=== PATIENT | male | born 1950 | race Caucasian/White ===

== ENCOUNTER 2025-01-06 02:58 | Inpatient (IN) | payer MEDICARE, OTHER, SELFPAY ==
[2025-01-05 21:58] VITALS: BP 115/85
[2025-01-05 21:59] VITALS: BP 115/85
[2025-01-05 22:04] VITALS: BMI 19.4
[2025-01-05 22:46] LABS: ALT (SGPT) 12 U/L (0-50); AST (SGOT) 23 U/L (17-59); Albumin 3.7 g/dl (3.5-5.0); Alkaline Phosphatase 80 U/L (38-126); Blood Urea Nitrogen 33 mg/dl (9-20); Calcium 8.4 mg/dl (8.4-10.2); Carbon Dioxide 23 mmol/L (22-30); Chloride 109 mmol/L (98-107); Estimated Creatinine Clearance 40 ml/min; Glucose 96 mg/dl (70-99); Hematocrit 48.8 % (39.0-52.0); Hemoglobin 15.5 g/dL (13.0-18.0); Mean Corp Hgb Conc. 31.8 g/dL (33.0-37.0); Mean Corpuscular Volume 106.6 fL (80.0-94.0); Nucleated Red Blood Cells % 0 % (-); Potassium 4.9 mmol/L (3.5-5.1); Red Cell Dist. Width 17.2 % (11.5-14.5); Sodium 136 mmol/L (135-145); Total Protein 6.6 g/dl (6.3-8.2); eGFR 57.29
[2025-01-05 23:00] LABS: Troponin I 0.047 ng/ml
[2025-01-05 23:10] VITALS: BP 114/83
[2025-01-06] VITALS (12 sets, daily range): BP systolic 100–118; BP diastolic 68–86; PULSE 110; O2SAT 93; BMI 19.6
--- NOTE | 2025-01-06 00:19 | ED.GENMED ---
History of Present Illness
<Anna Pelayo MD, Resident - Last Filed: 01/06/25 01:05>
General
Chief Complaint: Breathing Problem
Time Seen by Provider: 01/06/25 00:17
History of Present Illness
History of Present Illness:
74yo M with a hx of HFrEF, asthma, smoking hx, lung ca (s/p L upper lobectomy 2000) who p/w worsening orthopnea & HALI.
Pt states that for the last few months he started having mild worsening dyspnea on exertion. Over the last 4-5 days SOB progressed to severe orthopnea, felt like drowning in bed and has not slept more than an hour or so each night. Has been
restricting his water intake to try to help. Has productive cough. No fever. Has some dyspnea at rest with speaking. Endorses worsening bilateral HALI to the knees, leading to him cutting his pants legs to allow space. Takes jardiance, entresto, &
metoprolol at home, although admits to occasionally missing/skipping doses. Uses albuterol inhaler PRN for asthma; he used it today. Denies hx fo COPD. Endorses smoking hx on and off throughout life. His last echo was ~12 yrs ago, which demonstrated
EF of 15-20%. States dry weight 125lb.
Past History
<Anna Pelayo MD, Resident - Last Filed: 01/06/25 01:05>
Past History
ED Past Medical History: Asthma, Cancer and CHF
ED Past Surgical History: Other (L upper lobectomy)
Patient has exhibited threatening behavior?: No
Social History
Tobacco: Former smoker
Review of Systems
<Anna Pelayo MD, Resident - Last Filed: 01/06/25 01:05>
Review of Systems
All Other Systems: ROS reviewed and negative except as documented in HPI and ROS
Phy Exam
<Anna Pelayo MD, Resident - Last Filed: 01/06/25 01:05>
Cardiovascular Exam
Cardiovascular Exam: regular rate/rhythm and other (2+ pitting edema bilaterally to knees)
Heart Sounds: normal
Pulmonary Exam
Pulmonary Exam: lungs clear and other (SOB with speaking, no accessory muscle use)
<Rubin Rene MD - Last Filed: 01/06/25 02:08>
Physical Exam
Physical Exam:
see above
Scores
<Rubin Rene MD - Last Filed: 01/06/25 02:08>
Heart Failure Risk
Heart Failure Risk Score: Yes
History of Stroke or TIA: No
History of intubation for respiratory distress: No
Heart rate on ED arrival >/= 110: Yes
SaO2 <90% on arrival on room air: No
HR >/=110 during 3min walk test (or too ill to perform test): Yes
ECG has acute ischemic changes: No
Urea >/=12mmol/L (BUN 33.6mg/dL): Yes
Serum CO2>/=35mmol/L: No
Troponin I or T elevated to MN Level (0.4mg/dL): No
NT-proBNP >/=5,000ng/L (5,000pg/ml): Yes
HF Risk Score: 4
Admission Status: HIGH RISK 26.1% Consider SNF treatment or admission to hospital
Course
<Anna Pelayo MD, Resident - Last Filed: 01/06/25 01:05>
Orders/Labs/Results
Orders:
Orders
01/05/25 22:16
Electrocardiogram (*1) Urgent
Reason for Study: Chest Pain
EKG- Treatment ONCE
01/05/25 22:17
Complete Blood Count/With Diff Urgent
Comprehensive Metabolic Panel Urgent
NT-proBNP Urgent
Troponin I Urgent
01/05/25 22:18
Chest [CR Chest - 2 Views ] Urgent
Comment:
Reason For Exam: sob
01/06/25 01:04
Furosemide [Lasix] 40 mg IV NOW STA
Abnormal Lab Results
01/05/25
22:17
RBC 4.58 L 10^6/uL
(4.70-6.10)
MCV 106.6 H fL
(80.0-94.0)
MCH 33.8 H pg
(27.0-31.0)
MCHC 31.8 L g/dL
(33.0-37.0)
RDW 17.2 H %
(11.5-14.5)
Absolute Monos (auto) 0.7 H 10^3/uL
(0.1-0.6)
Monocytes % 10.2 H %
(1.7-9.3)
Chloride 109 H mmol/L
(98-107)
BUN 33 H mg/dl
(9-20)
Total Bilirubin 2.0 H mg/dl
(0.2-1.3)
Troponin I 0.047 H* ng/ml
01/05/25 22:17
01/05/25 22:17
Vital Signs
Initial and Last Documented VS:
Initial Vital Signs
Pulse Resp BP
113 22 115/85
01/05/25 21:58 01/05/25 21:58 01/05/25 21:58
Last Documented Vital Signs
Temp Pulse Resp BP Pulse Ox
98.5 F 101 16 102/71 98
01/05/25 21:59 01/06/25 01:15 01/06/25 01:15 01/06/25 01:11 01/06/25 01:15
<Rubin Rene MD - Last Filed: 01/06/25 02:08>
Orders/Labs/Results
Orders:
Orders
01/05/25 22:16
Electrocardiogram (*1) Urgent
Reason for Study: Chest Pain
EKG- Treatment ONCE
01/05/25 22:17
Complete Blood Count/With Diff Urgent
Comprehensive Metabolic Panel Urgent
NT-proBNP Urgent
Troponin I Urgent
01/05/25 22:18
Chest [CR Chest - 2 Views ] Urgent
Comment:
Reason For Exam: sob
01/06/25 01:04
Furosemide [Lasix] 40 mg IV NOW STA
Abnormal Lab Results
01/05/25
22:17
RBC 4.58 L 10^6/uL
(4.70-6.10)
MCV 106.6 H fL
(80.0-94.0)
MCH 33.8 H pg
(27.0-31.0)
MCHC 31.8 L g/dL
(33.0-37.0)
RDW 17.2 H %
(11.5-14.5)
Absolute Monos (auto) 0.7 H 10^3/uL
(0.1-0.6)
Monocytes % 10.2 H %
(1.7-9.3)
Chloride 109 H mmol/L
(98-107)
BUN 33 H mg/dl
(9-20)
Total Bilirubin 2.0 H mg/dl
(0.2-1.3)
Troponin I 0.047 H* ng/ml
01/05/25 22:17
01/05/25 22:17
Vital Signs
Initial and Last Documented VS:
Initial Vital Signs
Pulse Resp BP
113 22 115/85
01/05/25 21:58 01/05/25 21:58 01/05/25 21:58
Last Documented Vital Signs
Temp Pulse Resp BP Pulse Ox
98.5 F 101 16 102/71 98
01/05/25 21:59 01/06/25 01:15 01/06/25 01:15 01/06/25 01:11 01/06/25 01:15
<Anna Pelayo MD, Resident - Last Filed: 01/06/25 01:05>
MDM/Problems Addressed
Differential Diagnosis Includes:
HFrEF exacerbation
MDM/Problems Addressed:
Plan:
- Bedside cardiac US
- Furosemide diuresis 40mg IV lasix
- Order cardiac echo
- Admit to floors
- Monitor weight
<Anna Pelayo MD, Resident - Last Filed: 01/06/25 01:05>
*Pulse Oximetry
SaO2: 96
Oxygen Mode of Delivery: Room air
<Rubin Rene MD - Last Filed: 01/06/25 02:08>
*Pulse Oximetry
Patient hypoxic: no
*Critical Care Note
Total Time (30-74mins, 75-104mins- exclusive of procedures): Not Applicable
<Anna Pelayo MD, Resident - Last Filed: 01/06/25 01:05>
Update Note
Update Note:
Bedside cardiopulm US demonstrated B lines throughout lung [place], R sided pleural effusion, and diminished LV contractility
ED Attending Note
<Anna Pelayo MD, Resident - Last Filed: 01/06/25 01:05>
-
Portions of this chart may have been created with voice recognition software.� Occasional wrong word or��sound alike� substitutions may have occurred due to the inherent limitations of voice recognition software.
<Rubin Rene MD - Last Filed: 01/06/25 02:08>
ED Attending Note
ED Attending Note:
I saw and evaluated patient independently. Notes gradually worsening dyspnea with exertion as well as orthopnea. Notes increasing lower extremity edema over the past 1 to 2 weeks. He is not on any diuretic but does have a significantly reduced
ejection fraction. Bedside echo showing very poor EF. There are B-lines bilaterally indicating pulmonary edema. He is in no respiratory distress, saturating well on room air. Will diurese, admit to hospitalist for further workup, echo, diuresis.
Discharge Plan
Departure
Prescriptions:
No Action
latanoprost 0.005 % Drops
1 drp OPHTHALMIC (EYE) DAILY
metoprolol succinate 25 mg Tablet Extended Release 24 Hr
25 mg PO 1XD
albuterol sulfate 90 mcg/actuation Hfa Aerosol Inhaler
2 puff INHALATION 6XD
loratadine [Claritin] 10 mg Tablet
10 mg PO DAILY PRN (Reason: Reduction Of Transepidermal Water Loss)
Jardiance 10 mg Tablet
10 mg PO DAILY
sacubitril-valsartan [Entresto] 24-26 mg Tablet
1 tab PO BID
Referrals:
Hitesh Rowe MD [Family Provider]
Interventions
Interventions:
*Risk Screen - Suicide Last Done: 01/05/25 22:05
*General Assessment Last Done: 01/05/25 22:05
*Neglect/Abuse Screening Last Done: 01/05/25 22:05
*ED- Fall Risk Assessment Last Done: 01/05/25 22:05
*ED COVID-19 Vaccine History Last Done: 01/05/25 22:05
*ED Influenza Vaccine History Last Done: 01/05/25 22:05
ED- Cardiac Assessment Last Done: 01/05/25 22:13
ED- Pulmonary Assessment Last Done: 01/05/25 22:13
Discharge Date and Time
Print Language: TAJIK
[2025-01-06] MEDS: LASIX 40 MG IV ×3 (01:11→16:20)
--- NOTE | 2025-01-06 05:09 | HPS.HSE ---
Family Physician
-
Family Physician: Hitesh Rowe MD
Chief Complaint
-
Weakness, SOB
History of Present Illness
Patient is a 74y M with PMH significant for lung cancer and cardiomyopathy who presents to ED complaining of generalized weakness and SOB. Patient states that he has had cough and SOB that has been worsening over the past few weeks. Symptoms
seem worse at night when he is trying to sleep. Patient is followed at [facility] by Pulmonary and Cardiology. He has not previously been to this institution.
Patient has h/o lung cancer s/p IRVING resection in 2000. He states that he recently had abnormal CT and PET-CT showing R sided mass / malignancy.
He was seen by Cardiology for pre-op assessment and reportedly advised that he could not tolerate anesthesia.
Patient is awake and alert - but has tangential speech with a great deal of rambling. Coherent / linear history is somewhat difficult to obtain.
Medical History
Past Medical History
Past Medical History: Reports Other
Additional Past Medical History:
Lung Cancer s/p Left Upper Lobectomy
Chronic HFrEF
BPH
Past Surgical History: Reports Other
Additional Past Surgical History:
Left Upper Lobectomy
TURBT
Social History
Tobacco: Smoker (Current every day smoker - self-rolled / unfiltered cigarettes.)
Alcohol: Daily (3 oz daily of vodka / scotch)
Drug: None
Family History
Family History: Not pertinent
Allergies / Home Medications
Allergies reflects when Allergies were last updated in [email or web address].
Home Medications with original date entered in [email or web address]
Allergy/Medication List:
Allergies
Allergy/AdvReac Type Severity Reaction Status Date / Time
No Known Allergies Allergy Unverified 01/05/25 23:50
Home Medications
albuterol sulfate 90 mcg/actuation aerosol inhaler 2 puff inhalation 6XD 01/06/25
empagliflozin 10 mg tablet (Jardiance) 10 mg PO DAILY 01/06/25
latanoprost 0.005 % eye drops 1 drp ophthalmic (eye) DAILY 01/06/25
loratadine 10 mg tablet (Claritin) 10 mg PO DAILY PRN Reduction Of Transepidermal Water Loss 01/06/25
metoprolol succinate 25 mg tablet,extended release 24 hr 25 mg PO 1XD 01/06/25
sacubitril 24 mg-valsartan 26 mg tablet (Entresto) 1 tab PO BID 01/06/25
Review of Systems
-
History Source: Patient
A 12 point ROS was completed and negative except as noted: Yes
Constitutional: Reports Fatigue; Denies Fever or Chills
EENT: Denies Sore Throat
Respiratory: Reports Cough and Trouble Breathing
Cardiac: Denies Chest Pain or Palpitations
Abdomen/GI: Denies Abdominal Pain, Nausea or Vomiting
: Denies Dysuria or Flank Pain
Musculoskeletal: Reports Edema; Denies Joint Pain
Neurological: Denies Dizzy or Headache
Psych: Denies Depression or Anxiety
Physical Exam
Vital Signs
Vital Signs
Temp Pulse Resp BP Pulse Ox
98 F 111 19 111/82 98
01/06/25 04:30 01/06/25 04:30 01/06/25 04:30 01/06/25 04:30 01/06/25 04:30
Physical Exam
General: Other (Cachectic 74y M in no acute distress.)
HEENT: Other (Dry MM. Neck supple. Pos HJR.)
Respiratory: Other (Coarse breath sounds R mid lung field. Scattered expiratory wheezes throughout.)
Cardiac: S1/S2 and Tachycardia; No Murmur
GI: Soft, Non Tender, Non Distended and Normal Bowel Sounds
Musculoskeletal: No Clubbing, No Cyanosis and Other (3+ pedal edema bilaterally - extends to knees.)
Neuro: Awake, Alert and Other (Somewhat rambling / confusing speech. Able to redirect with effort.)
Laboratory Results
-
Laboratory Results
Total Bilirubin 2.0 mg/dl (0.2-1.3) H 01/05/25 22:17
AST 23 U/L (17-59) 01/05/25 22:17
ALT 12 U/L (0-50) 01/05/25 22:17
Alkaline Phosphatase 80 U/L (38-126) 01/05/25 22:17
Troponin I 0.047 ng/ml H* 01/05/25 22:17
Impression/Plan
-
A/P: Patient is a 74y M with PMH significant for lung cancer and CHF who presents to ED complaining of SOB and fatigue.
Subjective Dyspnea, Cough
- Admit for further evaluation and treatment.
- Certainly patient has multiple potential etiologies for dyspnea.
- He is not in acute distress nor is he hypoxemic, etc.
- No urgent intervention is necessary and will perform additional evaluations as noted below and obtain outside records prior to formulating treatment plan.
Chronic HFrEF
- Patient reports that LVEF = 20%. No prior records here or available in [facility].
- Lasix dose given in the ED.
- Update Echo.
- Obtain prior Cardiology records.
- Continue current med regimen including Jardiance and Entresto
- Follow I/Os, daily weights, etc.
- Dose additional Lasix as needed. Note that BP is borderline.
- Does have LE edema - ? primary pulmonary process / cor pulmonale / etc.
- Check US to rule out DVT as well.
Lung Cancer
- Prior h/o LISA lobectomy due to cancer. No adjuvant therapy per patient (chemo was recommended but not pursued?).
- Reports recent imaging (CT and PET) showing new R sided lesion.
- This is supported by current CXR findings.
- Unclear what - if any - current treatment plan is in place. Deemed non-operative candidate per Cardiology according to patient.
- Obtain outpatient records for review.
COPD
- Scattered wheezing on exam and lifelong smoking history - though reportedly no formal dx of COPD.
- Appears fairly comfortable and not hypoxemic.
- Nebs ATC and PRN. Observe off of systemic steroids for now - especially given edema.
- Review prior records. Pulm evaluation for additional recommendations.
- Encourage smoking cessation - though suspect he will not be motivated to quit.
- With coarse breath sounds and RUL opacity (likely malignancy), will cover with abx for now.
- Low threshold to discontinue abx if no fever, leukocytosis, etc.
DVT Prophylaxis: Lovenox
Code Status: Full
Patient notes that his health issues may be discussed with either of his sons. However, he requests that his brother (Kwaku) not be given any information.
[2025-01-06 05:44] LABS: Hematocrit 47.9 % (39.0-52.0); Hemoglobin 15.2 g/dL (13.0-18.0); Mean Corp Hgb Conc. 31.7 g/dL (33.0-37.0); Mean Corpuscular Volume 106.7 fL (80.0-94.0); Platelet Count 143 10^3/uL (130-400); Red Cell Dist. Width 17.1 % (11.5-14.5)
[2025-01-06] MEDS: ZOSYN 50 IV ×3 (05:53→19:40)
[2025-01-06 06:06] LABS: Blood Urea Nitrogen 40 mg/dl (9-20); Calcium 9.7 mg/dl (8.4-10.2); Carbon Dioxide 22 mmol/L (22-30); Chloride 107 mmol/L (98-107); Estimated Creatinine Clearance 32 ml/min; Glucose 141 mg/dl (70-99); Potassium 5.8 mmol/L (3.5-5.1); Sodium 142 mmol/L (135-145); eGFR 44.65
[2025-01-06 06:23] LABS: Troponin I 0.045 ng/ml
[2025-01-06] MEDS: DUONEB 3 ML INH ×3 (07:11→19:12)
[2025-01-06] MEDS: TOPROL XL 25 MG PO (09:03)
[2025-01-06] MEDS: FARXIGA 10 MG PO (09:03)
[2025-01-06] MEDS: ENTRESTO 24 MG/26 MG 1 TAB PO (09:04)
[2025-01-06] MEDS: XALATAN OPHTHALMIC SOLUTION 1 DROP BOTH EYES (09:17)
[2025-01-06 09:55] LABS: Troponin I 0.033 ng/ml
--- NOTE | 2025-01-06 09:57 | CON.PUL ---
Consultation
Consultation Request
Date/Time Consultation Requested: 01/06/2025-8 AM
Date/Time Consultation Performed: 01/06/2025-8:30 AM
Requesting Provider: Hospitalist
Performing Provider: Dr. Hewitt
Reason for Consultation: Shortness of breath
Medical History
-
Chief Complaint: Shortness of breath
History of Present Illness:
74-year-old actively smoking male with a history of lung cancer 2000 status post left upper lobectomy [place] whowas seen in last couple months at [facility] found to have lung masses and had a PET scan and never followed up with pulmonary now
presents with increasing shortness of breath and pulmonary consulted for abnormal chest x-ray, suspected recurrent lung cancer and possible pneumonia 01/06/2025.. The patient states that his shortness of breath is improved in the last 12 hours. He
has some shortness of breath with exertion, minimal yellow mucus production, no chest pain, pleurisy, hemoptysis, abdominal pain, and admits to significant leg swelling left greater than right lower extremity but no focal weakness. He reports
having a combination of constipation and occasional diarrhea and is unable to follow-up with pulmonary that was recommended after his last [facility] hospitalization. He reports he may have CT scan as well as a PET scan but no biopsy done at that
time. 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
Past Medical History
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 Cigarette smoker-ongoing. Chronic heart failure reduced EF. BPH. Weight loss. TURBT.)
Social History
Tobacco: Smoker ([id number]-continues sell for old unfiltered 5 to 6 cigarettes daily)
Alcohol: None (3 ounces of vodka or scotch daily)
Drug: None
Occupational Exposures: No known asbestos exposure
Environmental Exposures: No known tuberculosis exposure
Family History
Family History: Reviewed & Not Pertinent
Allergies / Home Medications
Allergies
Allergy/AdvReac Type Severity Reaction Status Date / Time
naproxen Allergy Mild Itching Verified 01/06/25 06:27
Home Medications
�Medication �Instructions �Recorded �Confirmed �Last Taken �Type
albuterol sulfate 90 mcg/actuation 2 puff inhalation 6XD 01/06/25 01/06/25 Unknown History
aerosol inhaler
empagliflozin 10 mg tablet 10 mg PO DAILY 01/06/25 01/06/25 Unknown History
(Jardiance)
latanoprost 0.005 % eye drops 1 drp ophthalmic (eye) DAILY 01/06/25 01/06/25 Unknown History
loratadine 10 mg tablet (Claritin) 10 mg PO DAILY PRN Reduction Of 01/06/25 01/06/25 Unknown History
Transepidermal Water Loss
metoprolol succinate 25 mg 25 mg PO 1XD 01/06/25 01/06/25 Unknown History
tablet,extended release 24 hr
sacubitril 24 mg-valsartan 26 mg 1 tab PO BID 01/06/25 01/06/25 Unknown History
tablet (Entresto)
Review of Systems
-
Unable to Obtain full review of systems at this time due to: Other ( per HPI)
Vitals / Labs / Diagnostic Testing
Vital Signs
Temp Pulse Resp BP Pulse Ox
97.6 F 92 16 110/68 94
01/06/25 07:00 01/06/25 09:03 01/06/25 07:16 01/06/25 09:03 01/06/25 07:16
Lab Data
01/06/25 05:29
01/06/25 05:29
Diagnostic Testing:
Physical Exam
-
Exam:
Well-nourished and well-developed in no apparent distress
HEENT-atraumatic, normocephalic, temporal wasting
Neck-supple, no JVD, no bruit
Heart-regular rate and rhythm-no murmurs, rubs or gallops
Chest diminished breath sounds, prolonged expiratory time, no wheezes or crackles
Back-no tenderness
Abdomen-soft, nontender, nondistended, no hepatosplenomegaly
Extremities-no cyanosis, clubbing, 2+ edema left greater than right lower extremity
Integument-intact, no rashes, lesions or ecchymosis
Neurology-alert and oriented, nonfocal motor and sensory exam
Assessment
-
74-year-old actively smoking male with a history of lung cancer 2000 status post left upper lobectomy [place] whowas seen in last couple months at [facility] found to have lung masses and had a PET scan and never followed up with pulmonary now
presents with increasing shortness of breath and pulmonary consulted for abnormal chest x-ray, suspected recurrent lung cancer and possible pneumonia 01/06/2025..
Shortness of breath and cough
Pulmonary masses
COPD with mild acute exacerbation
Chronic heart failure reduced EF
History of lung cancer
Mild leukopenia
Macrocytosis
Hyperkalemia
JANE
Hyperglycemia
Mildly elevated troponin
Conditions present prior to admission:
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
Cigarette smoker-ongoing.
Chronic heart failure reduced EF.
BPH.
Weight loss.
TURBT.
Plan
Acute on top of chronic respiratory decompensation likely due to underlying COPD with exacerbation as well as suspected pneumonia in a patient with probable recurrent lung cancer
Supplemental oxygen as needed
Assess discharge supplemental oxygen needs at the time of discharge
Incentive spirometry
Mucolytic's
Nebulizers-on DuoNebs
Observe off steroids but low threshold for initiation if wheezing persists
Check CT chest-ideally with contrast, however, with JANE obtain chest CT without
Obtain records from [facility]-reportedly had CT about 6 weeks ago as well as PET scan but never followed up with pulmonary-has not had a biopsy yet
Check cultures
Sputum culture if possible
Empiric antibiotics-Zosyn initiated
Consider broadening including atypical coverage if does not respond
Monitor for fluid overload-has significantly edematous lower extremities
Check lower extremity ultrasound to rule out DVT-somewhat sedentary and possibly hypercoagulable
Monitor renal function
Consider nephrology evaluation
Treat hyperkalemia
Trend troponin
Monitor blood sugar
Insulin supplementation as needed
Smoking cessation counseling
Nicotine patch if needed
DVT prophylaxis-on Lovenox
Nutrition-consider calorie count-significant cachexia and weight loss
Early mobilization
Reviewed with hospitalist
Outpatient pulmonary evaluation-reportedly plugged into [facility]-recommend return there unless once to transfer care which I am not encouraging
Diagnostic data:
Chest x-ray 01/05/2025-left upper lobe and right hilar masses, pneumonia cannot be excluded
Data Reviewed
-
EKG: Report reviewed by me
Radiology: Report reviewed by me
Labs: Labs reviewed by me
Old Records: Reviewed
Total Time Spent with Patient (in minutes): 55
--- NOTE | 2025-01-06 10:54 | CON.CAR ---
Addendum entered and electronically signed by Rosalba Medellin MD 01/06/25 17:32:
I saw and evaluated the patient, and I provided the substantive portion of the medical decision making.
I reviewed and agree with the note by Marie LAGUNAS and it accurately reflects our care.
I personally performed the medical decision making of the this encounter and my assessment and plan is below:
Patient typically follows with Dr. Roberson, he has a history of heart failure he told me his EF was down to 25%, lung cancer status post lobectomy many years ago but a recent abnormal PET scan, hypertension and CKD who presents for evaluation of
dyspnea on exertion and increased lower extremity swelling over the last 5 days. He has also had shortness of breath at rest and decreased urinary output. He tells me he has had a craving for salty foods, root beers with real sugar, lots of fluid
and even some vodka. He denies any chest pain or pressure. He tells me that he had a recent finding on PET scan that should be biopsied but was told he was too unstable for it.
With IV diuresis here he is starting to feel much better. He tells me he is putting out a good amount of urine again.
On exam, he has a regular rate and rhythm with a normal S1-S2, bibasilar rales were noted, 2+ pitting edema bilaterally up to the knees are noted. He is alert and oriented x 3.
Labs are pertinent for potassium 5.8 up from 4.9, creatinine 1.6 up from 1.3 troponin 0.047-0.045 initial proBNP greater than 27,000 admission weight was 127 pounds and 13.89 ounces.
Echocardiogram images personally reviewed showed LVEF about 30% with global hypokinesis, RV was dilated and hypokinetic, findings suggestive of RV pressure and volume overload. There was a focal, shaggy thickening that was mobile at the aortic cusp
closure on the ventricular size. There was focal calcification as well.
Assessment:
Heart failure with reduced EF: Currently volume overloaded. Agree with IV diuresis will continue twice daily for now which will require intensive monitoring.
Holding Entresto currently given abnormal renal function, will add back GDMT as able.
Heart failure team consult for CHF plan education.
Follow-up with Dr. Roberson who will need to evaluate his candidacy for heart ICD as an outpatient. Clearly the status of his lung cancer will need to be identified before this could be offered.
Aortic valve echodensity: Very small, no associated regurgitation. Will start with blood cultures. Will recommend a repeat TTE in 4 to 7 days to ensure this is not changing. Obviously any change in clinical status could also lead to a repeat TTE.
At this time given the size and lack of any pathologic flow would hold off on ALISON given significant risk for sedation.
JANE: Hopefully this is cardiorenal in etiology and will improve with diuresis, will monitor closely. Will need to deal with his hyperkalemia. Holding Entresto and giving more diuretic.
Lung cancer care as per medicine and pulmonary
Hypertension chronic, will evaluate agents throughout his stay.
Smoking sensation can encouraged.
Alcohol abuse needs to stop. Complete cessation encouraged and recommended.
Cachexia, multifactorial: Pulmonary and cardiac cachexia likely playing a role.
Will follow.
Original Note:
Consultation
Consultation Request
Date/Time Consultation Requested: 01/06/2025 04:15
Date/Time Consultation Performed: 01/06/2025 10:55
Requesting Provider: Dr. Mora
Performing Provider: BEBO Villasenor for Dr. Medellin
Reason for Consultation: Acute on chronic heart failure
Medical History
-
Chief Complaint: Dyspnea on exertion
History of Present Illness:
Ward Laws is a 74-year-old male (known to Dr. Riggs, his primary rn x ray), with heart failure (type unknown), lung cancer status post lobectomy with recent abnormal PET, hypertension, and CKD who presented to the emergency department
with a chief complaint of dyspnea on exertion. His dyspnea on exertion has been slowly worsening for greater than 1 week. He endorses orthopnea. He has had worsening lower extremity edema. He normally is managed at [facility] but is currently
living at the [facility] so he presented to the emergency department here. He used to consume excess alcohol but is currently only consuming about 3 ounces per day. He is a current smoker. He is unable to stop as he 'gets stuffy
sinuses' when he quit smoking. He denies chest pain, dizziness, and shortness of breath at the time of this consultation.
Current medical therapy is suspicious for HFrEF, await records.
Past Medical History
Past Medical History: Cancer (Lung [IRVING lobectomy 2000]), CHF, HTN and Renal Failure (CKD)
Past Surgical History: Other (IRVING lobectomy, 1999)
Social History
Tobacco: Smoker
Alcohol: Daily
Living: Homeless (Residing in a motel)
Family History
Family History: Reviewed & Not Pertinent
Allergies / Home Medications
Allergy/AdvReac Type Severity Reaction Status Date / Time
naproxen Allergy Mild Itching Verified 01/06/25 06:27
�Medication �Instructions �Recorded �Confirmed �Type
albuterol sulfate 90 mcg/actuation 2 puff inhalation 6XD 01/06/25 01/06/25 History
aerosol inhaler
empagliflozin 10 mg tablet 10 mg PO DAILY 01/06/25 01/06/25 History
(Jardiance)
latanoprost 0.005 % eye drops 1 drp ophthalmic (eye) DAILY 01/06/25 01/06/25 History
loratadine 10 mg tablet (Claritin) 10 mg PO DAILY PRN Reduction Of 01/06/25 01/06/25 History
Transepidermal Water Loss
metoprolol succinate 25 mg 25 mg PO 1XD 01/06/25 01/06/25 History
tablet,extended release 24 hr
sacubitril 24 mg-valsartan 26 mg 1 tab PO BID 01/06/25 01/06/25 History
tablet (Entresto)
Review of Systems
-
History Source: Patient
All other systems: Negative unless noted
Constitutional: Fatigue
EENT: No Symptoms
Respiratory: No Symptoms
Cardiac: No Symptoms
Abdomen/GI: No Symptoms
: No Symptoms
Musculoskeletal: Edema
Skin: No Symptoms
Neurological: No Symptoms
Endocrine: No Symptoms
Hematologic/Lymphatic: No Symptoms
Physical Exam
Vital Signs
Temp Pulse Resp BP Pulse Ox
97.6 F 92 16 110/68 94
01/06/25 07:00 01/06/25 09:03 01/06/25 07:16 01/06/25 09:03 01/06/25 07:16
Lab Results
01/06/25 05:29
01/06/25 05:29
Troponin I 0.033 ng/ml D 01/06/25 09:11
Qji-V-Mmvuypxtzzc Pept > 83547 pg/ml 01/05/25 22:17
Physical Exam
General: Well Developed, Well Nourished, No Apparent Distress and Comfortable
HEENT: Normocephalic, Anicteric and Moist Mucous Membranes
Respiratory: Crackles and Non Labored Respirations
Cardiac: S1/S2, Murmur and Peripheral Edema
Breast: Deferred by me
GI: Soft, Non Tender, Non Distended and Normal Bowel Sounds
Rectal: Deferred by Provider
Genito-urinary: No Costovertebral Tender
Musculoskeletal: No Clubbing and Edema
Skin: Warm and Dry
Neuro: Awake and Alert
Hematologic/Lymphatic: No Lymphadenopathy
Psych: Calm
Impression / Plan
-
I/P: 74M with heart failure (type unknown), lung cancer status post lobectomy with recent abnormal PET, hypertension, and CKD who presented to the emergency department with a chief complaint of dyspnea on exertion.
Outpatient rn x ray: Dr. Riggs, records requested 01/06/2025
Heart failure suspected HFrEF, acute on chronic
- Dry weight unknown, records requested
- He would benefit from bilateral lower extremity edema, ordered
- Diuresis with furosemide 40 mg IV daily, consider twice daily dosing if renal function tolerates
- GDMT as tolerated:
-CHELSEA/ARB/ARNI: Sacubitril/valsartan on hold, follow renal function
-SGLT2 inhibitor: Empagliflozin 10 mg daily
-Aldosterone agonist: None with current renal function
-Beta jaclyn: Metoprolol succinate 25 mg daily
-Isosorbide/Hydralazine:�Not currently indicated
-ICD: Update echocardiogram, per primary rn x ray
- Echocardiogram today
- Trend daily weight, I's/O, and BMP with diuresis
- Heart failure education, suspect dietary indiscretion while living at a motel (he endorses high salt/fluid intake)
Abnormal troponin, nonischemic myocardial injury in the setting of acute heart failure
- Peak troponin at arrival, 0.047 and has now fallen, no further troponin
- Chest pain-free
CKD, baseline unknown
- Unclear if he has an JANE versus baseline renal function
- Hold sacubitril�valsartan, follow BMP
Lung cancer
- Status post IRVING lobectomy 2000
- CXR with IRVING and right hilar masses, recent abnormal PET, patient reports he was not cleared for surgical resection
COPD, AE - pulmonary following
- Scattered wheezing on exam but without hypoxia
- Active smoker as below, full cessation recommended, he is not currently motivated to quit
- Follows with [facility] in the outpatient setting
Hypertension, chronic and stable
Current smoker, he is not motivated to quit, full cessation recommend
Daily EtOH, 3 ounces daily, he reports he 'really cut down' a few months ago
Cachexia, BMI currently 19.6, and he is volume overloaded
Data Reviewed
-
EKG: Report Reviewed by me
Radiology: Report Reviewed by me
Labs: Labs Reviewed by me
Old Records: Requested
[2025-01-06] MEDS: DUONEB INH (11:24)
--- NOTE | 2025-01-06 13:11 | W.PN.HOSP.TC ---
Today's Communication/Plan
-
Assessment / Plan
Assessment / Plan
General: No Apparent Distress, Comfortable and Conversant
HEENT: NormoCephalic, Moist mucous membranes, Atraumatic
Respiratory: Decreased breath sounds bilaterally, Non Labored Respirations
Cardiac: S1/S2 and Regular Rhythm; No Rub or Gallop
GI: Soft, Non Tender, Non Distended and Normal Bowel Sounds
Musculoskeletal: 2+ bilateral lower extremity edema, no deformity
Skin: Warm and dry
: NO Molina
Neuro: Awake, Alert, Nonfocal/grossly intact
Psych: Calm and Intact Judgment/Insight
Mr. 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
extremity edema, and orthopnea. His symptoms have been progressing over the past few weeks. His primary surface hydrologist and utilities manager are at [facility] although he is currently living in [place] and so presented here for evaluation. He
states he had a recent CT and PET scan showing recurrent lung cancer on the right side. Records request is pending. He has been started on IV diuresis and admitted for further evaluation and management.
Shortness of breath:
- With associated cough productive of clear sputum, orthopnea, and significant lower extremity edema
- Suspect acute on chronic HFrEF
- Cardiology following, beta-blockade with metoprolol succinate 25 mg daily, Entresto on hold for now due to renal function
- Continue diuresis for now with IV Lasix
- Echocardiogram pending
- Reports recent recurrence of lung cancer, workup ongoing, reportedly no plan for biopsy due to cardiac limitations, has been planning thoracentesis with cytology as outpatient but not yet completed
- Supplemental oxygen as needed
- Appreciate pulmonology guidance, CT chest pending without contrast due to renal dysfunction, continue empiric antibiotics with Zosyn for now, sputum culture if possible
JANE:
- Chronicity of renal dysfunction currently unclear
- Will monitor with diuresis
- Holding Entresto
- Check outpatient records when available
COPD:
- 48-mfhl-akrb current smoker
- Encourage cessation
- Continue scheduled nebulizers
- Appreciate pulmonology guidance
- CT chest pending
History of squamous cell lung cancer:
- Status post left upper lobe resection 2000
- Patient reports recurrence of cancer in the right lobe, outpatient records from [facility] pending
Underweight:
- BMI of 19.6, current weight 56.8 kg
- Consult to inpatient dietary service for further evaluation and recommendations
DVT prophylaxis: Subcu heparin
CODE STATUS: Full code
Anticipated Discharge: > 48 hours
Subjective/Interval History
-
Date of Service: January 06, 2025
Patient was seen and examined at bedside this morning. Currently breathing comfortably on room air. Although reports ongoing orthopnea.
Objective Data
-
Labs:
Laboratory Results
01/06/25
05:29
WBC 4.2 L
Hgb 15.2
Hct 47.9
Plt Count 143
Sodium 142
Potassium 5.8 H
Chloride 107
Carbon Dioxide 22
BUN 40 H
Creatinine 1.6 H
Glucose 141 H
Calcium 9.7
Vital Signs:
Vital Signs
Temp Pulse Resp BP Pulse Ox
97.7 F 102 12 118/80 97
01/06/25 11:00 01/06/25 11:00 01/06/25 11:00 01/06/25 11:00 01/06/25 11:00
I&O
01/05/25 01/06/25 01/07/25
06:59 06:59 06:59
Intake Total 0 / 0
Output Total 150 / 150
Balance -150 / -150
Review of Systems
-
History Source: Patient
All other systems: Reviewed and negative
Constitutional: Reports Weakness
Cardiac: Reports Orthopnea
Physical Exam
-
General: No Apparent Distress and Appears Chronically Ill
[2025-01-06] MEDS: HEPARIN 5000 UNITS SC (16:19)
[2025-01-07] VITALS (7 sets, daily range): BP systolic 95–112; BP diastolic 62–78; PULSE 107; O2SAT 96; BMI 19.3
[2025-01-07] MEDS: HEPARIN 5000 UNITS SC ×4 (00:05→23:41)
[2025-01-07] MEDS: ZOSYN 50 IV ×4 (02:20→23:42)
--- NOTE | 2025-01-07 03:15 | DOWNTIME ---
There was a [employer] Client Tile Setter Apprentice Downtime on 01/07/2025 from 0100 to 01/07/2025 at 0255. Downtime documentation of patient's care, including medication administrations, has been reconciled in the electronic record per guidelines. Refer to the
patient's paper chart under the miscellaneous tab to see printed paper medication records and downtime forms.
[2025-01-07] MEDS: ZOSYN IV (07:07)
[2025-01-07] MEDS: DUONEB 3 ML INH ×4 (07:25→19:28)
[2025-01-07 09:05] LABS: Hematocrit 44.4 % (39.0-52.0); Hemoglobin 14.6 g/dL (13.0-18.0); Mean Corp Hgb Conc. 32.9 g/dL (33.0-37.0); Mean Corpuscular Volume 102.3 fL (80.0-94.0); Nucleated Red Blood Cells % 0 % (-); Platelet Count 141 10^3/uL (130-400); Red Cell Dist. Width 17.3 % (11.5-14.5)
[2025-01-07] MEDS: FARXIGA 10 MG PO (09:06)
[2025-01-07] MEDS: TOPROL XL 25 MG PO (09:09)
[2025-01-07] MEDS: XALATAN OPHTHALMIC SOLUTION 1 DROP BOTH EYES (09:09)
--- NOTE | 2025-01-07 09:22 | W.PN.PUL.V3 ---
Today's Communication / Plan
-
CT chest reviewed--eventually needs biopsy-probably bronchoscopically
Await [place] records
Antibiotics-finite course
Treat for pneumonia and outpatient follow-up at [place] for further therapy
Assessment
-
74-year-old actively smoking male with a history of lung cancer 2000 status post left upper lobectomy [facility] seen in last couple months at [place] found to have lung masses and had a PET scan and never followed up with pulmonary now
presents with increasing shortness of breath and pulmonary consulted for abnormal chest x-ray, suspected recurrent lung cancer and possible pneumonia 01/06/2025..
Shortness of breath and cough
Pulmonary masses
COPD with mild acute exacerbation
Postobstructive pneumonia
Chronic heart failure reduced EF
History of lung cancer
Mild leukopenia
Macrocytosis
Hyperkalemia
JANE
Hyperglycemia
Mildly elevated troponin
Conditions present prior to admission:
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
Cigarette smoker-ongoing.
Chronic heart failure reduced EF.
BPH.
Weight loss.
TURBT.
Plan
Acute on top of chronic respiratory decompensation likely due to underlying COPD with exacerbation as well as suspected pneumonia in a patient with probable recurrent lung cancer
Supplemental oxygen as needed-currently on room air
Assess discharge supplemental oxygen needs at the time of discharge with ambulation
Incentive spirometry
Mucolytic's
Nebulizers-on DuoNebs
Observe off steroids but low threshold for initiation if wheezing returns
CT chest 01/07/2025-dye not used as patient has elevated serum creatinine, right hilar/perihilar soft tissue prominence suspicious for malignancy with some postobstructive right middle lobe atelectasis, volume loss in the left hemithorax, scattered
small mediastinal lymph nodes, too small low-attenuation lesions in the liver suspicious for malignancy
Eventual bronchoscopic biopsy
Obtain records from [place]-reportedly had CT about 6 weeks ago as well as PET scan but never followed up with pulmonary-has not had a biopsy yet
Check cultures
Sputum culture if possible
Empiric antibiotics-Zosyn initiated
Monitor for fluid overload-has significantly edematous lower extremities
Lower extremity ultrasound 01/06/2025-no evidence for DVT bilaterally
Cardiology evaluation-correspondence reviewed
Echocardiogram 01/06/2025-EF 30-35%, suspected RV pressure overload, PA systolic 42
Diuresis as tolerated
Monitor renal function, electrolytes, intake/output, lower extremity edema and weight
Replace electrolytes as needed
Trend troponin
Monitor renal function
Consider nephrology evaluation
Treat hyperkalemia-improved
Monitor blood sugar
Insulin supplementation as needed
Smoking cessation counseling
Nicotine patch if needed
DVT prophylaxis-on heparin
Nutrition-consider calorie count-significant cachexia and weight loss
Early mobilization
Reviewed with hospitalist
Outpatient pulmonary evaluation-reportedly plugged into [place]-recommend return there unless patient wants to transfer care
Diagnostic data:
Chest x-ray 01/05/2025-left upper lobe and right hilar masses, pneumonia cannot be excluded
Subjective Data
-
Date of Service:
Date of Service: January 07, 2025
Chief Complaint: Pulmonary Follow Up and Dyspnea Follow Up
Subjective:
Feels better, less 'foggy', no complaints of shortness of breath at rest, productive cough, chest pain or abdominal pain
Review of Systems
General: Other (Per HPI)
Objective Data
Data Reviewed
Vital Signs / I&O:
Vital Signs
Temp Pulse Resp BP Pulse Ox
98.1 F 100 18 107/74 100
01/07/25 08:08 01/07/25 09:09 01/07/25 08:08 01/07/25 09:09 01/07/25 08:08
Intake and Output
1101/07/25 01/08/25
06:59 06:59 06:59
Intake Total 0 / 0 720 / 720
Output Total 150 / 150 1300 / 1300
Balance -150 / -150 -580 / -580
SaO2: 100
Physical Exam
General: Respiratory Distress (n) and Comfortable
HEENT: Normocephalic, Anicteric and Moist Mucous Membranes
Cardiovascular: Regular Rhythm
Respiratory: Clear (Diminished breath sounds, prolonged expiratory time, hyperinflation), Wheeze (n), Crackles (n), Rhonchi (n), Non-Labored Respirations, Accessory Resp Muscle Use (n) and Stridor (n)
GI: Soft, Non Distended and Non Tender
Neurology: Awake, Alert and No Motor Deficits
Skin: Warm, Good Color, Cyanosis (n) and Jaundice (n)
Labs/Micro/Reports
Lab Data
01/07/25 08:52
Microbiology
01/06/25 05:22 Nose MRSA Screen - Final
No Methicillin Resistant Staphylococcus aureus isolated.
--- NOTE | 2025-01-07 09:33 | PTCARENOTE ---
Burst of SVT noted. Patient asymptomatic. Dr. Machuca notified and reviewed strip. Plan of care ongoing.
[2025-01-07 09:53] LABS: Blood Urea Nitrogen 54 mg/dl (9-20); Calcium 10.1 mg/dl (8.4-10.2); Carbon Dioxide 26 mmol/L (22-30); Chloride 103 mmol/L (98-107); Estimated Creatinine Clearance 24 ml/min; Glucose 130 mg/dl (70-99); Potassium 5.1 mmol/L (3.5-5.1); Sodium 137 mmol/L (135-145); eGFR 32.22
--- NOTE | 2025-01-07 10:33 | PTCARENOTE ---
Creat elevated this am to 2.1. Dr. Machuca made aware. Ordered to hold lasix.
[2025-01-07] MEDS: LASIX IV (10:56)
--- NOTE | 2025-01-07 10:57 | W.PN.CD ---
Today's Communication / Plan
-
Will need to slow diuresis
No Lasix tomorrow
Reevaluate tomorrow
BMP in AM
Impression / Plan
-
I/P: 74M with heart failure (type unknown), lung cancer status post lobectomy with recent abnormal PET, hypertension, and CKD who presented to the emergency department with a chief complaint of dyspnea on exertion.
Outpatient railway shunter: Dr. Riggs, records requested 01/06/2025
Acute on chronic HFrEF: BiVentricular dysfunction on echo
- Dry weight unknown, records requested
- Diuresis with IV furosemide will hold for now given the bump in Cr
- GDMT as tolerated:
-CHELSEA/ARB/ARNI: Sacubitril/valsartan on hold, follow renal function
-SGLT2 inhibitor: Empagliflozin 10 mg daily
-Aldosterone agonist: None with current renal function
-Beta jaclyn: Metoprolol succinate 25 mg daily
-Isosorbide/Hydralazine:�Not currently indicated
-ICD: Update echocardiogram, per primary railway shunter => would need lung cancer evaluated, treated, and prognosis of life expectancy >1 year
- Echocardiogram 01/06/2025: LVEF 30-35%, dilated RV, severe RV dysfxn, abnormal AoV, cannot r/o veg => cultures sent, repeat echo in a week or so
- Trend daily weight, I's/O, and BMP with diuresis
- Heart failure education, suspect dietary indiscretion while living at a motel (he endorses high salt/fluid intake)
NSVT, several runs, longest just under 8 seconds
- Avoid Amio for now
- Monitor
RBBB/LAFB
Abnormal troponin, nonischemic myocardial injury in the setting of acute heart failure
- Peak troponin at arrival, 0.047 and has now fallen, no further troponin
- Chest pain-free
JANE on top of CKD, baseline unknown
- Unclear if he has an JANE versus baseline renal function
- Hold sacubitril�valsartan, follow BMP
Lung cancer
- Status post IRVING lobectomy 2000
- CXR with IRVING and right hilar masses, recent abnormal PET, patient reports he was not cleared for surgical resection
- Pulmonary involved
COPD, AE - pulmonary following
- Scattered wheezing on exam but without hypoxia
- Active smoker as below, full cessation recommended, he is not currently motivated to quit
- Follows with [facility] in the outpatient setting
Hypertension, chronic and stable
Current smoker, he is not motivated to quit, full cessation recommend
Daily EtOH, 3 ounces daily, he reports he 'really cut down' a few months ago
Cachexia, BMI currently 19.6, and he is volume overloaded
Subjective:
Feels much better.
Physical Exam
Vital Signs/Labs
Vital Signs
Temp Pulse Resp BP Pulse Ox
98.1 F 100 18 107/74 100
01/07/25 08:08 01/07/25 09:09 01/07/25 08:08 01/07/25 09:09 01/07/25 09:22
01/06/25 01/07/25 01/08/25
06:59 06:59 06:59
Actual Weight 56.841 kg 55.877 kg
01/07/25 08:52
01/07/25 08:52
01/05/25
22:17
Pjb-N-Jigodakczwq Pept > 47424
LAB Results
01/05/25 01/06/25 01/06/25
22:17 05:29 09:11
Troponin I 0.047 H* 0.045 H* 0.033 D
01/06/25
16:12
Troponin I Cancelled
Physical Exam
Constitutional: No acute distress
EENT: Anicteric
Cardiovascular: Rhythm & rate is regular and Pedal edema present (but improved per pt)
Respiratory: Respiratory effort normal and Rhonchi Present
GI: Soft, Distention absent and Non tender
Neuro/Psych: AO x 3
Data Reviewed
-
Date of Service: January 07, 2025
--- NOTE | 2025-01-07 11:28 | CM ---
Patient seen bedside, initial assessment completed. Patient is a 74y M with PMH significant for lung cancer and cardiomyopathy who presents to ED complaining of generalized weakness and SOB.
Patient currently resides at [facility]. Patient is independent w/ mobility, no device required. Independent w/ ADLs and personal care. No SNF/HC hx. Drives. Currently unemployed, receives social security. Patient shared w/ CM that his
younger brother controls their trust fund and only gives patient $750/month. Patient stated his mother arranged this w/ an [place] real estate lawyer and that [place] muffler tender do not have any jurisdiction to help him with this. Patient's brother is in [place]. Patient
continued to share his childhood experience w/ his mother and father and how he was the child that did nothing right, opposite of his brother. Patient has stepsons as his contacts, CM asked if stepsons are supportive and/or if he can live w/ either
of them. Patient stated they both work, they do help him but he cannot live w/ them as he has a bad allergy to cats and they both have cats.
Patient unsure where he can go because w/ his social security and the $750 his brother gives him, he cannot afford an apartment. Patient stated he received information for [facility], CM offered to make a referral to [facility]. Patient agreeable to referral, appreciative for any assistance he can get.
CM placed referral to [facility], they will follow up w/ patient tomorrow via phone
Therapy assessed, recommending home PT. Patient agreeable to [facility], referral placed in [facility]
Plan: Home w/ VN. [facility] to follow up for additional support/resources
--- NOTE | 2025-01-07 13:58 | W.PN.HOSP.TC ---
Today's Communication/Plan
-
Assessment / Plan
Assessment / Plan
General: No Apparent Distress, Comfortable and Conversant
HEENT: NormoCephalic, Moist mucous membranes, Atraumatic
Respiratory: Mild expiratory wheezing in right lung field, Non Labored Respirations
Cardiac: S1/S2 and Regular Rhythm; No Rub or Gallop
GI: Soft, Non Tender, Non Distended and Normal Bowel Sounds
Musculoskeletal: 2+ bilateral lower extremity edema to mid mancilla, no deformity
Skin: Warm and dry
: NO Molina
Neuro: Awake, Alert, Nonfocal/grossly intact
Psych: Calm and Intact Judgment/Insight
Mr. Laws is a 74-year-old male with a medical history of squamous cell lung cancer (status post left upper lobectomy 2000), COPD, HFrEF, enlarged prostate, and [id number] current smoker who presented with shortness of breath, bilateral lower
extremity edema, and orthopnea. His symptoms have been progressing over the past few weeks. 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 He
states he had a recent CT and PET scan showing recurrent lung cancer on the right side. Records request is pending. He has been started on IV diuresis and admitted for further evaluation and management.
Acute on chronic HFrEF:
- Presented with shortness of breath with associated cough productive of clear sputum, orthopnea, and significant lower extremity edema
- Cardiology following, beta-blockade with metoprolol succinate 25 mg daily, Entresto on hold for now due to renal function
- Has been diuresing well since admission with IV Lasix, weight down from 58 kg to 55.8 kg today
- However renal function worsening, will hold Lasix for now
- Echocardiogram shows LVEF 30 to 35% with dilated RV and severe RV dysfunction, also showed abnormal aortic valve and cannot rule out vegetation
- Blood culture sent, repeat echocardiogram in approximately 1 week
- Supplemental oxygen as needed
- Appreciate pulmonology guidance, CT chest pending without contrast due to renal dysfunction, continue empiric antibiotics with Zosyn for now, sputum culture if possible
JANE:
- Chronicity of renal dysfunction currently unclear
- Renal function worsening with diuresis, holding Lasix for now
- Holding Entresto
- Check outpatient records when available
COPD:
- [id number] current smoker
- Encourage cessation, nicotine gum provided
- Continue scheduled nebulizers
- Appreciate pulmonology guidance
- CT chest showing right hilar/perihilar soft tissue prominence suspicious for malignancy
History of squamous cell lung cancer:
- Status post left upper lobe resection 2000
- Reports recent recurrence of lung cancer, workup ongoing, reportedly no plan for biopsy due to cardiac limitations, has been planning thoracentesis with cytology as outpatient but not yet completed
- Awaiting outpatient records from [facility]
- CT chest showing right hilar/perihilar soft tissue prominence suspicious for malignancy
- Appreciate pulmonology guidance
Underweight:
- BMI of 19.3, current weight 55.8 kg
- Consult to inpatient dietary service for further evaluation and recommendations
DVT prophylaxis: Subcu heparin
CODE STATUS: Full code
Anticipated Discharge: 24 - 48 hours
Subjective/Interval History
-
Date of Service: January 07, 2025
Patient was seen and examined at bedside this morning. Has been diuresing well since admission with IV Lasix. Breathing much more comfortably today.
Objective Data
-
Labs:
Laboratory Results
01/07/25
08:52
WBC 15.3 H
Hgb 14.6
Hct 44.4
Plt Count 141
Sodium 137
Potassium 5.1
Chloride 103
Carbon Dioxide 26
BUN 54 H
Creatinine 2.1 H
Glucose 130 H
Calcium 10.1
Vital Signs:
Vital Signs
Temp Pulse Resp BP Pulse Ox
97.8 F 101 18 104/71 97
01/07/25 11:33 01/07/25 11:33 01/07/25 11:33 01/07/25 11:33 01/07/25 11:33
I&O
01/06/25 01/07/25 01/08/25
06:59 06:59 06:59
Intake Total 0 / 0 720 / 720
Output Total 150 / 150 1300 / 1300
Balance -150 / -150 -580 / -580
Review of Systems
-
History Source: Patient
All other systems: Reviewed and negative
Musculoskeletal: Reports Edema
Physical Exam
-
General: No Apparent Distress
--- NOTE | 2025-01-07 16:04 | VNURNOTE ---
Home Health Liaison met with patient at bedside to discuss [facility] nurse/therapy, visits, schedule and homebound status. Patient is agreeable and understands that visits at home will be 2-3 x per week to assess and teach medical management. He does
not have a scale. Noted on referral for [facility] to bring a scale for Start of Care visit. Patient is aware that [facility] will contact them for start of care within a few days to a week after discharge from . Provided contact number for [facility].
[facility] referral completed in [facility].
[2025-01-07] MEDS: NICORETTE 2 MG PO (18:16)
[2025-01-07 21:46] LABS: Glucose - Point of Care 90 mg/dl (70-99)
[2025-01-08] VITALS (7 sets, daily range): BP systolic 80–115; BP diastolic 60–82; BMI 18.9
[2025-01-08] MEDS: SENOKOT 8.6 MG PO ×3 (03:34→19:46)
[2025-01-08] MEDS: ZOSYN 50 IV ×4 (05:27→23:01)
[2025-01-08] MEDS: DUONEB 3 ML INH ×4 (07:22→20:00)
[2025-01-08 07:57] LABS: Hematocrit 43.0 % (39.0-52.0); Hemoglobin 14.2 g/dL (13.0-18.0); Mean Corp Hgb Conc. 33.0 g/dL (33.0-37.0); Mean Corpuscular Volume 102.6 fL (80.0-94.0); Nucleated Red Blood Cells % 0 % (-); Platelet Count 128 10^3/uL (130-400); Red Cell Dist. Width 17.0 % (11.5-14.5)
[2025-01-08 08:41] LABS: Blood Urea Nitrogen 55 mg/dl (9-20); Calcium 9.9 mg/dl (8.4-10.2); Carbon Dioxide 27 mmol/L (22-30); Chloride 102 mmol/L (98-107); Estimated Creatinine Clearance 23 ml/min; Glucose 90 mg/dl (70-99); Potassium 4.9 mmol/L (3.5-5.1); Sodium 138 mmol/L (135-145); eGFR 32.22
--- NOTE | 2025-01-08 08:56 | W.PN.CD ---
Today's Communication / Plan
-
- Continue Metoprolol succinate 25 mg daily; unable to increase secondary to blood pressure limitations.
- Echocardiogram 01/06/2025: LVEF 30-35%, dilated RV, severe RV dysfxn, abnormal AoV, cannot r/o veg => cultures sent, repeat echo in a week or so--patient would be a poor candidate for any aggressive measures, would consult ID for long-term
antibiotics if there was clinical concern for endocarditis.
- Conservative management; cannot use amiodarone secondary to underlying lung disease or digoxin secondary to renal dysfunction.
- Continue current dose of metoprolol succinate; unable to increase secondary to blood pressure limitations.
- Heart rates will likely not improve much given underlying advanced lung disease.
- Patient would be high risk for any procedures; proceed if clinically indicated--if benefits outweigh risk.
- Patient's overall prognosis is likely poor long-term.
Impression / Plan
-
I/P: 74M with chronic HFrEF (current EF 30-35%), COPD with chronic continued cigarette use, lung cancer status-post IRVING lobectomy (2000)with recent abnormal PET, hypertension, and CKD who presented to the emergency department with a chief complaint
of dyspnea on exertion.
Outpatient take out waiter: Dr. Riggs, records requested 01/06/2025
Acute on chronic HFrEF (EF 30-35%): BiVentricular dysfunction on echo
- Dry weight unknown, records requested
- IV furosemide now being held secondary to JANE.
- GDMT as tolerated:
-CHELSEA/ARB/ARNI: No Sacubitril/valsartan (Entresto) secondary to renal function and low blood pressure.
-SGLT2 inhibitor: Dapagliflozin 10 mg daily
-Aldosterone agonist: None with current renal function and low blood pressure.
-Beta jaclyn: Continue Metoprolol succinate 25 mg daily; unable to increase secondary to blood pressure limitations.
-Isosorbide/Hydralazine:�Not currently indicated
-ICD: Update echocardiogram, per primary take out waiter => would need lung cancer evaluated, treated, and prognosis of life expectancy >1 year; likely poor candidate for ICD.
- Echocardiogram 01/06/2025: LVEF 30-35%, dilated RV, severe RV dysfxn, abnormal AoV, cannot r/o veg => cultures sent, repeat echo in a week or so--patient would be a poor candidate for any aggressive measures, would consult ID for long-term
antibiotics if there was clinical concern for endocarditis.
- Heart failure education, suspect dietary indiscretion while living at a motel (he endorses high salt/fluid intake)
Frequent PVCs/NSVT. Sinus tachycardia: several runs, longest just under 8 seconds
- Conservative management; cannot use amiodarone secondary to underlying lung disease or digoxin secondary to renal dysfunction.
- Continue current dose of metoprolol succinate; unable to increase secondary to blood pressure limitations.
- Heart rates will likely not improve much given underlying advanced lung disease.
RBBB/LAFB -relatively stable.
Abnormal troponin, nonischemic myocardial injury in the setting of acute on chronic heart failure
- Peak troponin at arrival, 0.047 and has now fallen, no further troponin
JANE on top of CKD, baseline unknown
- Unclear if he has an JANE versus baseline renal function
- Holding Lasix and Entresto as above.
Lung cancer
- Status post IRVING lobectomy 2000
- CXR with IRVING and right hilar masses, recent abnormal PET, patient reports he was not cleared for surgical resection
- Pulmonary involved.
- Patient would be high risk for any procedures; proceed if clinically indicated--if benefits outweigh risk.
COPD, AE - pulmonary following
- Scattered wheezing on exam but without hypoxia
- Active smoker as below, full cessation recommended, he is not currently motivated to quit
- Follows with [facility] in the outpatient setting
-On IV Zosyn.
Hypertension, chronic and stable
Current smoker, he is not motivated to quit, full cessation recommend
Daily EtOH, 3 ounces daily, he reports he 'really cut down' a few months ago
Cachexia, BMI currently 19.6, and he is volume overloaded
Disposition: Patient's overall prognosis is likely poor long-term.
Subjective:
No major events overnight. Still with some shortness of breath, but improving.
Physical Exam
Vital Signs/Labs
Vital Signs
Temp Pulse Resp BP Pulse Ox
96.7 F L 103 18 104/76 94
01/08/25 07:40 01/08/25 07:40 01/08/25 07:40 01/08/25 07:40 01/08/25 07:40
01/07/25 01/08/25 01/09/25
06:59 06:59 06:59
Actual Weight 55.877 kg 54.613 kg
01/08/25 07:42
01/08/25 07:42
01/05/25
22:17
Jku-Z-Ypjzfyynvvu Pept > [id number]
LAB Results
01/05/25 01/06/25 01/06/25
22:17 05:29 09:11
Troponin I 0.047 H* 0.045 H* 0.033 D
01/06/25
16:12
Troponin I Cancelled
Physical Exam
Constitutional: No acute distress and Comfortable
EENT: Anicteric
Cardiovascular: Rhythm & rate is regular (Ectopy present), Pedal edema present (1-2+) and S1S2 is normal
Respiratory: Respiratory effort normal, Crackles Absent and Wheeze Present
GI: Soft
Neuro/Psych: AO x 3
Other: Skin (Warm, dry, intact)
Data Reviewed
-
Date of Service: January 08, 2025
EKG: Tracing Personally Visualized and interpreted (Telemetry: Sinus rhythm, frequent PVCs)
Echo: Report Reviewed by me (EF: 30-35%, biventricular failure.)
Medical Tests (PFT, Pathology etc): Discussed with Patient
Labs: Labs Reviewed by me
--- NOTE | 2025-01-08 08:56 | W.PN.PUL.V3 ---
Today's Communication / Plan
-
Increase activity
Antibiotics
High risk for invasive pulmonary evaluation per cardiology
Alternatively if diagnosis needed we could ask interventional radiology if liver lesions or amenable to biopsy hide low risk invasive bronchoscopic evaluation
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
Assessment
-
74-year-old actively smoking male with a history of lung cancer 2000 status post left upper lobectomy [facility]ow[facility] seen in last couple months at [place] found to have lung masses and had a PET scan and never followed up with pulmonary now
presents with increasing shortness of breath and pulmonary consulted for abnormal chest x-ray, suspected recurrent lung cancer and possible pneumonia 01/06/2025..
Shortness of breath and cough
Pulmonary masses
COPD with mild acute exacerbation
Postobstructive pneumonia
Chronic heart failure reduced EF
History of lung cancer
Mild leukopenia
Macrocytosis
Hyperkalemia
JANE
Hyperglycemia
Mildly elevated troponin
Conditions present prior to admission:
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
Cigarette smoker-ongoing.
Chronic heart failure reduced EF.
BPH.
Weight loss.
TURBT.
Plan
Acute on top of chronic respiratory decompensation likely due to underlying COPD with exacerbation as well as suspected pneumonia in a patient with probable lung cancer with possible liver mets
Supplemental oxygen as needed-currently on room air
Assess discharge supplemental oxygen needs at the time of discharge with ambulation
Incentive spirometry
Mucolytic's
Nebulizers-on DuoNebs
Observe off steroids but low threshold for initiation if wheezing returns
CT chest 01/07/2025-dye not used as patient has elevated serum creatinine, right hilar/perihilar soft tissue prominence suspicious for malignancy with some postobstructive right middle lobe atelectasis, volume loss in the left hemithorax, scattered
small mediastinal lymph nodes, too small low-attenuation lesions in the liver suspicious for malignancy
Eventual bronchoscopic biopsy, however, cardiology notes suggest high risk for any procedures
Obtain records from [place]-reportedly had CT about 6 weeks ago as well as PET scan but never followed up with pulmonary-has not had a biopsy yet
Alternatively if diagnosis needed we could ask interventional radiology if liver lesions or amenable to biopsy hide low risk invasive bronchoscopic evaluation
Cultures unrevealing
Sputum culture if possible
Empiric antibiotics-Zosyn initiated-finite course
Monitor for fluid overload-has significantly edematous lower extremities
Lower extremity ultrasound 01/06/2025-no evidence for DVT bilaterally
Cardiology evaluation-correspondence reviewed-high risk for any procedures
Echocardiogram 01/06/2025-EF 30-35%, suspected RV pressure overload, PA systolic 42
Diuresis as tolerated
Monitor renal function, electrolytes, intake/output, lower extremity edema and weight
Replace electrolytes as needed
Troponin trended
Monitor renal function-stable creatinine at 2.1
Consider nephrology evaluation
Treat hyperkalemia-improved
Monitor blood sugar
Insulin supplementation as needed
Smoking cessation counseling
Nicotine patch as needed
DVT prophylaxis-on heparin
Nutrition-consider calorie count-significant cachexia and weight loss
Early mobilization
Reviewed with hospitalist
Outpatient pulmonary evaluation-reportedly plugged into [place]-recommend return there unless patient wants to transfer care
Diagnostic data:
Chest x-ray 01/05/2025-left upper lobe and right hilar masses, pneumonia cannot be excluded
Subjective Data
-
Date of Service:
Date of Service: January 08, 2025
Chief Complaint: Pulmonary Follow Up and Dyspnea Follow Up
Subjective:
No complaints of shortness of breath, chest pain or abdominal pain
Review of Systems
General: Other (Per HPI)
Objective Data
Data Reviewed
Vital Signs / I&O:
Vital Signs
Temp Pulse Resp BP Pulse Ox
96.7 F L 103 18 104/76 94
01/08/25 07:40 01/08/25 07:40 01/08/25 07:40 01/08/25 07:40 01/08/25 07:40
Intake and Output
01/07/25 01/08/25 01/09/25
06:59 06:59 06:59
Intake Total 720 / 720 480 / 480
Output Total 1300 / 1300 850 / 850
Balance -580 / -580 -370 / -370
SaO2: 94
Physical Exam
General: Respiratory Distress (n) and Comfortable
HEENT: Normocephalic, Anicteric and Moist Mucous Membranes
Cardiovascular: Regular Rhythm
Respiratory: Clear (Diminished breath sounds, prolonged expiratory time, hyperinflation), Wheeze (n), Crackles (n), Rhonchi (n), Non-Labored Respirations, Accessory Resp Muscle Use (n) and Stridor (n)
GI: Soft, Non Distended and Non Tender
Neurology: Awake, Alert and No Motor Deficits
Skin: Warm, Good Color, Cyanosis (n) and Jaundice (n)
Labs/Micro/Reports
Lab Data
01/08/25 07:42
01/08/25 07:42
Microbiology
01/06/25 14:48 Blood/Venous Blood Culture - Preliminary
No Growth in 24 hours- Final report to follow
01/06/25 14:03 Blood/Venous Blood Culture - Preliminary
No Growth in 24 hours- Final report to follow
01/06/25 05:22 Nose MRSA Screen - Final
No Methicillin Resistant Staphylococcus aureus isolated.
[2025-01-08] MEDS: HEPARIN 5000 UNITS SC ×3 (09:34→23:00)
[2025-01-08] MEDS: TOPROL XL 25 MG PO (09:35)
[2025-01-08] MEDS: XALATAN OPHTHALMIC SOLUTION 1 DROP BOTH EYES (09:36)
[2025-01-08] MEDS: FARXIGA 10 MG PO (09:36)
--- NOTE | 2025-01-08 12:05 | PTCARENOTE ---
Manual BP taken at 11am. 80/60 on R arm. 92/[address] Wong made aware. Patient reports feeling sleepy, however alert and oriented. Plan of care ongoing.
--- NOTE | 2025-01-08 12:59 | PTCARENOTE ---
16F rico placed per orders. Patient tolerated. 350ml clear yellow urine drained after insertion.
--- NOTE | 2025-01-08 15:15 | W.PN.HOSP.TC ---
Today's Communication/Plan
-
Assessment / Plan
Assessment / Plan
General: No Apparent Distress, Comfortable and Conversant
HEENT: NormoCephalic, Moist mucous membranes, Atraumatic
Respiratory: Mild expiratory wheezing in right lung field, Non Labored Respirations
Cardiac: S1/S2 and Regular Rhythm; No Rub or Gallop
GI: Soft, Non Tender, Non Distended and Normal Bowel Sounds
Musculoskeletal: 2+ bilateral lower extremity edema to mid mancilla, no deformity
Skin: Warm and dry
: NO Molina
Neuro: Awake, Alert, Nonfocal/grossly intact
Psych: Calm and Intact Judgment/Insight
Mr. Laws is a 74-year-old male with a medical history of squamous cell lung cancer (status post left upper lobectomy 2000), COPD, HFrEF, enlarged prostate, and [id number] current smoker who presented with shortness of breath, bilateral lower
extremity edema, and orthopnea. His symptoms have been progressing over the past few weeks. 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 He
states he had a recent CT and PET scan showing recurrent lung cancer on the right side. Records request is pending. He has been started on IV diuresis and admitted for further evaluation and management.
Acute on chronic HFrEF:
- Presented with shortness of breath with associated cough productive of clear sputum, orthopnea, and significant lower extremity edema
- Cardiology following, beta-blockade with metoprolol succinate 25 mg daily, Entresto on hold for now due to renal function
- Has been diuresing well since admission with IV Lasix, weight down from 58 kg to 54.6 kg today
- Renal function continues to worsen, still holding Lasix
- Echocardiogram shows LVEF 30 to 35% with dilated RV and severe RV dysfunction, also showed abnormal aortic valve and cannot rule out vegetation
- Blood culture sent, repeat echocardiogram in approximately 1 week
- Supplemental oxygen as needed
- Appreciate pulmonology guidance, CT chest pending without contrast due to renal dysfunction, continue empiric antibiotics with Zosyn for now, sputum culture if possible
JANE:
- Chronicity of renal dysfunction currently unclear
- Renal function worsened with diuresis, continuing to hold Lasix
- Holding Entresto
- Appears to be acutely retaining urine requiring straight cath overnight, PVR this morning was around 300 cc, Molina catheter ordered
COPD:
- 40-[id number] current smoker
- Encourage cessation, nicotine gum provided
- Continue scheduled nebulizers
- Appreciate pulmonology guidance
- CT chest showing right hilar/perihilar soft tissue prominence suspicious for malignancy
History of squamous cell lung cancer:
- Status post left upper lobe resection 2000
- Reports recent recurrence of lung cancer, workup ongoing, reportedly no plan for biopsy due to cardiac limitations, has been planning thoracentesis with cytology as outpatient but not yet completed
- Awaiting outpatient records from [facility]
- CT chest showing right hilar/perihilar soft tissue prominence suspicious for malignancy
- Appreciate pulmonology guidance
Underweight:
- BMI of 19.3, current weight 54.6 kg
- Consult to inpatient dietary service for further evaluation and recommendations
DVT prophylaxis: Subcu heparin
CODE STATUS: Full code
Anticipated Discharge: 24 - 48 hours
Subjective/Interval History
-
Date of Service: January 08, 2025
Patient was seen and examined at bedside this morning. Breathing comfortably. Is having acute urinary retention requiring straight catheterization overnight.
Objective Data
-
Labs:
Laboratory Results
01/08/25
07:42
WBC 10.1
Hgb 14.2
Hct 43.0
Plt Count 128 L
Sodium 138
Potassium 4.9
Chloride 102
Carbon Dioxide 27
BUN 55 H
Creatinine 2.1 H
Glucose 90
Calcium 9.9
Vital Signs:
Vital Signs
Temp Pulse Resp BP Pulse Ox
97.5 F 67 16 107/63 92
01/08/25 13:44 01/08/25 14:43 01/08/25 14:43 01/08/25 13:44 01/08/25 13:44
I&O
01/07/25 01/08/25 01/09/25
06:59 06:59 06:59
Intake Total 720 / 720 480 / 480
Output Total 1300 / 1300 850 / 850
Balance -580 / -580 -370 / -370
Review of Systems
-
History Source: Patient
All other systems: Reviewed and negative
Physical Exam
-
General: No Apparent Distress
[2025-01-09] VITALS (8 sets, daily range): BP systolic 102–121; BP diastolic 66–84; PULSE 102–111; O2SAT 94; BMI 18.7
[2025-01-09] MEDS: ZOSYN 50 IV ×4 (05:55→23:19)
[2025-01-09] MEDS: DUONEB 3 ML INH ×2 (07:38→19:49)
[2025-01-09] MEDS: HEPARIN 5000 UNITS SC ×3 (07:55→23:18)
[2025-01-09] MEDS: FARXIGA 10 MG PO (07:57)
[2025-01-09] MEDS: TOPROL XL 25 MG PO (07:57)
[2025-01-09] MEDS: SENOKOT 8.6 MG PO ×2 (07:58→21:19)
[2025-01-09 08:05] LABS: Glucose - Point of Care 80 mg/dl (70-99)
[2025-01-09] MEDS: XALATAN OPHTHALMIC SOLUTION 1 DROP BOTH EYES (08:16)
--- NOTE | 2025-01-09 08:33 | W.PN.CD ---
Today's Communication / Plan
-
Still significant LE edema
Diuresis on hold due to JANE
Rhythm is sinus tach
Impression / Plan
-
I/P: 74M with chronic HFrEF (current EF 30-35%), COPD with chronic continued cigarette use, lung cancer status-post IRVING lobectomy (2000)with recent abnormal PET, hypertension, and CKD who presented to the emergency department with a chief complaint
of dyspnea on exertion.
Outpatient daytime babysitter: Dr. Riggs, records requested 01/06/2025
Acute on chronic HFrEF (EF 30-35%): BiVentricular dysfunction on echo
- Dry weight unknown, records requested
- IV furosemide now being held secondary to JANE.
- GDMT as tolerated:
-CHELSEA/ARB/ARNI: No Sacubitril/valsartan (Entresto) secondary to renal function and low blood pressure.
-SGLT2 inhibitor: Dapagliflozin 10 mg daily
-Aldosterone agonist: None with current renal function and low blood pressure.
-Beta jaclyn: Continue Metoprolol succinate 25 mg daily; unable to increase secondary to blood pressure limitations.
-Isosorbide/Hydralazine:�Not currently indicated
-ICD: Update echocardiogram, per primary daytime babysitter => would need lung cancer evaluated, treated, and prognosis of life expectancy >1 year; likely poor candidate for ICD.
- Echocardiogram 01/06/2025: LVEF 30-35%, dilated RV, severe RV dysfxn, abnormal AoV, cannot r/o veg => cultures sent, repeat echo in a week or so--patient would be a poor candidate for any aggressive measures, would consult ID for long-term
antibiotics if there was clinical concern for endocarditis.
- Heart failure education, suspect dietary indiscretion while living at a motel (he endorses high salt/fluid intake)
Frequent PVCs/NSVT. Sinus tachycardia: several runs, longest just under 8 seconds
- Conservative management; cannot use amiodarone secondary to underlying lung disease or digoxin secondary to renal dysfunction.
- Continue current dose of metoprolol succinate; unable to increase secondary to blood pressure limitations.
- Heart rates will likely not improve much given underlying advanced lung disease.
RBBB/LAFB -relatively stable.
Abnormal troponin, nonischemic myocardial injury in the setting of acute on chronic heart failure
- Peak troponin at arrival, 0.047 and has now fallen, no further troponin
JANE on top of CKD, baseline unknown
- Unclear if he has an JANE versus baseline renal function
- Holding Lasix and Entresto as above.
Lung cancer
- Status post IRVING lobectomy 2000
- CXR with IRVING and right hilar masses, recent abnormal PET, patient reports he was not cleared for surgical resection
- Pulmonary involved.
- Patient would be high risk for any procedures; proceed if clinically indicated--if benefits outweigh risk.
COPD, AE - pulmonary following
- Scattered wheezing on exam but without hypoxia
- Active smoker as below, full cessation recommended, he is not currently motivated to quit
- Follows with [facility] in the outpatient setting
-On IV Zosyn.
Hypertension, chronic and stable
Current smoker, he is not motivated to quit, full cessation recommend
Daily EtOH, 3 ounces daily, he reports he 'really cut down' a few months ago
Cachexia, BMI currently 19.6, and he is volume overloaded
Disposition: Patient's overall prognosis is likely poor long-term.
Subjective:
No major events overnight. Still with some shortness of breath, but improving.
Physical Exam
Vital Signs/Labs
Vital Signs
Temp Pulse Resp BP Pulse Ox
98 F 107 14 105/74 96
01/09/25 07:12 01/09/25 07:57 01/09/25 07:43 01/09/25 07:57 01/09/25 07:43
01/08/25 01/09/25 01/10/25
06:59 06:59 06:59
Actual Weight 120 lb 6.4 oz 119 lb 7 oz
01/05/25
22:17
Qgs-H-Mmnvsijexld Pept > [id number]
LAB Results
01/06/25 01/06/25
09:11 16:12
Troponin I 0.033 D Cancelled
Physical Exam
Constitutional: No acute distress and Comfortable
EENT: Anicteric
Cardiovascular: Rhythm & rate is regular and Pedal edema present
Respiratory: Respiratory effort normal, Wheeze Present and Rhonchi Present
GI: Soft
Neuro/Psych: AO x 3
Data Reviewed
-
Date of Service: January 09, 2025
EKG: Tracing Personally Visualized and interpreted (sinus tach)
Echo: Report Reviewed by me
Labs: Labs Reviewed by me
[2025-01-09 08:58] LABS: Hematocrit 39.7 % (39.0-52.0); Hemoglobin 13.5 g/dL (13.0-18.0); Mean Corp Hgb Conc. 34.0 g/dL (33.0-37.0); Mean Corpuscular Volume 99.5 fL (80.0-94.0); Nucleated Red Blood Cells % 0 % (-); Platelet Count 107 10^3/uL (130-400); Red Cell Dist. Width 17.0 % (11.5-14.5)
--- NOTE | 2025-01-09 09:19 | W.PN.PUL.V3 ---
Today's Communication / Plan
-
Wean oxygen
Increase activity
Continue nebulizers
Antibiotics-finite course
Diuresis per cardiology
Pulmonary will sign off-recommend outpatient pulmonary follow-up at [facility] where he has had PET scan and has been plugged into pulmonary
Assessment
-
74-year-old actively smoking male with a history of lung cancer 2000 status post left upper lobectomy [place] whowas seen in last couple months at [facility] found to have lung masses and had a PET scan and never followed up with pulmonary now
presents with increasing shortness of breath and pulmonary consulted for abnormal chest x-ray, suspected recurrent lung cancer and possible pneumonia 01/06/2025..
Shortness of breath and cough
Pulmonary masses
COPD with mild acute exacerbation
Postobstructive pneumonia
Chronic heart failure reduced EF
History of lung cancer
Mild leukopenia
Macrocytosis
Hyperkalemia
JANE
Hyperglycemia
Mildly elevated troponin
Conditions present prior to admission:
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
Cigarette smoker-ongoing.
Chronic heart failure reduced EF.
BPH.
Weight loss.
TURBT.
Plan
Acute on top of chronic respiratory decompensation likely due to underlying COPD with exacerbation as well as suspected pneumonia in a patient with probable lung cancer with possible liver mets
Supplemental oxygen as needed-currently on room air
Assess discharge supplemental oxygen needs at the time of discharge with ambulation
Incentive spirometry
Mucolytic's
Nebulizers-on DuoNebs
Observe off steroids but low threshold for initiation if wheezing returns
CT chest 01/07/2025-dye not used as patient has elevated serum creatinine, right hilar/perihilar soft tissue prominence suspicious for malignancy with some postobstructive right middle lobe atelectasis, volume loss in the left hemithorax, scattered
small mediastinal lymph nodes, too small low-attenuation lesions in the liver suspicious for malignancy
Eventual bronchoscopic biopsy, however, cardiology notes suggest high risk for any procedures
Obtain records from [facility]-reportedly had CT about 6 weeks ago as well as PET scan but never followed up with pulmonary-has not had a biopsy yet
Alternatively if diagnosis needed we could ask interventional radiology if liver lesions or amenable to biopsy hide low risk invasive bronchoscopic evaluation
Cultures unrevealing
Sputum culture if possible
Empiric antibiotics-Zosyn initiated-finite course
Monitor for fluid overload-has significantly edematous lower extremities
Lower extremity ultrasound 01/06/2025-no evidence for DVT bilaterally
Cardiology evaluation-correspondence reviewed-high risk for any procedures
Echocardiogram 01/06/2025-EF 30-35%, suspected RV pressure overload, PA systolic 42
Diuresis as tolerated-still has significant edema but renal insufficiency worse
Monitor renal function, electrolytes, intake/output, lower extremity edema and weight
Replace electrolytes as needed
Troponin trended
Monitor renal function-stable creatinine at 2.1
Consider nephrology evaluation
Treat hyperkalemia-improved
Monitor blood sugar
Insulin supplementation as needed
Smoking cessation counseling
Nicotine patch as needed
DVT prophylaxis-on heparin
Nutrition-consider calorie count-significant cachexia and weight loss
Early mobilization
Finite course of antibiotics, continue nebulizers and recommend outpatient pulmonary [id number] will sign off for now
Outpatient pulmonary evaluation-reportedly plugged into [facility]-recommend return there unless patient wants to transfer care
Diagnostic data:
Chest x-ray 01/05/2025-left upper lobe and right hilar masses, pneumonia cannot be excluded
Subjective Data
-
Date of Service:
Date of Service: January 09, 2025
Chief Complaint: Pulmonary Follow Up and Dyspnea Follow Up
Subjective:
No complaints of worsening shortness of breath, some mild dyspnea on exertion, no chest pain or abdominal pain
Review of Systems
General: Other (Per HPI)
Objective Data
Data Reviewed
Vital Signs / I&O:
Vital Signs
Temp Pulse Resp BP Pulse Ox
98 F 107 14 105/74 96
01/09/25 07:12 01/09/25 07:57 01/09/25 07:43 01/09/25 07:57 01/09/25 07:43
Intake and Output
01/08/25 01/09/25 01/10/25
06:59 06:59 06:59
Intake Total 480 / 480 580 / 580
Output Total 850 / 850 850 / 850
Balance -370 / -370 -270 / -270
SaO2: 96
Physical Exam
General: Respiratory Distress (n) and Comfortable
HEENT: Normocephalic, Anicteric and Moist Mucous Membranes
Cardiovascular: Regular Rhythm
Respiratory: Clear (Diminished breath sounds, prolonged expiratory time, hyperinflation), Wheeze (n), Crackles (n), Rhonchi (n), Non-Labored Respirations, Accessory Resp Muscle Use (n) and Stridor (n)
GI: Soft, Non Distended and Non Tender
Neurology: Awake, Alert and No Motor Deficits
Skin: Warm, Good Color, Cyanosis (n) and Jaundice (n)
Labs/Micro/Reports
Lab Data
01/09/25 08:47
Microbiology
01/06/25 14:48 Blood/Venous Blood Culture - Preliminary
No Growth in 48 hours- Final report to follow
01/06/25 14:03 Blood/Venous Blood Culture - Preliminary
No Growth in 48 hours- Final report to follow
01/06/25 05:22 Nose MRSA Screen - Final
No Methicillin Resistant Staphylococcus aureus isolated.
[2025-01-09 09:46] LABS: Blood Urea Nitrogen 46 mg/dl (9-20); Calcium 9.6 mg/dl (8.4-10.2); Carbon Dioxide 23 mmol/L (22-30); Chloride 106 mmol/L (98-107); Estimated Creatinine Clearance 26 ml/min; Glucose 78 mg/dl (70-99); Potassium 4.4 mmol/L (3.5-5.1); Sodium 141 mmol/L (135-145); eGFR 36.33
[2025-01-09] MEDS: DUONEB INH ×2 (11:14→14:44)
--- NOTE | 2025-01-09 14:00 | CM ---
Chart reviewed. Care ongoing. On room air.
[facility] accepted
Plan: Home w/ [facility]. [facility] follow up
--- NOTE | 2025-01-09 15:31 | W.PN.HOSP.TC ---
Today's Communication/Plan
-
Assessment / Plan
Assessment / Plan
General: No Apparent Distress, Comfortable and Conversant
HEENT: NormoCephalic, Moist mucous membranes, Atraumatic
Respiratory: Clear bilaterally, Non Labored Respirations
Cardiac: S1/S2 and Regular Rhythm; No Rub or Gallop
GI: Soft, Non Tender, Non Distended and Normal Bowel Sounds
Musculoskeletal: 2+ bilateral lower extremity edema to mid mancilla, no deformity
Skin: Warm and dry
: Molina catheter in place draining clear yellow urine
Neuro: Awake, Alert, Nonfocal/grossly intact
Psych: Calm and Intact Judgment/Insight
Mr. Laws is a 74-year-old male with a medical history of squamous cell lung cancer (status post left upper lobectomy 2000), COPD, HFrEF, enlarged prostate, and [id number]-[id number] current smoker who presented with shortness of breath, bilateral lower
extremity edema, and orthopnea. His symptoms have been progressing over the past few weeks. 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 He
states he had a recent CT and PET scan showing recurrent lung cancer on the right side. Records request is pending. He has been started on IV diuresis and admitted for further evaluation and management.
Acute on chronic HFrEF:
- Presented with shortness of breath with associated cough productive of clear sputum, orthopnea, and significant lower extremity edema
- Cardiology following, beta-blockade with metoprolol succinate 25 mg daily, Entresto on hold due to renal function and borderline hypotension
- Had been diuresing well since admission with IV Lasix which is now on hold due to worsening renal function, weight down from 58 kg to 54.1 kg today
- Renal function slightly improved today with creatinine slightly down to 1.9, will continue to hold diuretic for now
- Echocardiogram shows LVEF 30 to 35% with dilated RV and severe RV dysfunction, also showed abnormal aortic valve and cannot rule out vegetation
- Blood cultures remain sterile, patient jennifer afebrile, repeat echocardiogram in approximately 1 week
- Supplemental oxygen as needed
- Appreciate pulmonology guidance, continue empiric antibiotics with Zosyn for now, sputum culture if possible
JANE:
- Chronicity of renal dysfunction currently unclear
- Renal function slightly improved today, we will continue to hold Lasix
- Holding Entresto
- Molina catheter placed for urinary retention, will monitor for improvement renal function, will leave Molina in place at discharge and recommend urology follow-up
COPD:
- 13-wjfq-wowl current smoker
- Encourage cessation, nicotine gum provided
- Continue scheduled nebulizers
- Appreciate pulmonology guidance
- CT chest showing right hilar/perihilar soft tissue prominence suspicious for malignancy
History of squamous cell lung cancer:
- Status post left upper lobe resection 2000
- Reports recent recurrence of lung cancer, workup ongoing, reportedly no plan for biopsy due to cardiac limitations, has been planning thoracentesis with cytology as outpatient but not yet completed
- Awaiting outpatient records from [facility]
- CT chest showing right hilar/perihilar soft tissue prominence suspicious for malignancy
- Appreciate pulmonology guidance
Underweight:
- BMI of 19.3, current weight 54.1 kg
- Consult to inpatient dietary service for further evaluation and recommendations
DVT prophylaxis: Subcu heparin
CODE STATUS: Full code
Anticipated Discharge: 24 - 48 hours
Subjective/Interval History
-
Date of Service: January 09, 2025
Patient seen and examined at bedside this morning. Breathing more comfortably. Molina catheter in place since yesterday for acute urinary retention. Diuretic remains on hold due to worsening renal function which now appears to be improving.
Objective Data
-
Labs:
Laboratory Results
01/09/25
08:47
WBC 8.3
Hgb 13.5
Hct 39.7
Plt Count 107 L
Sodium 141
Potassium 4.4
Chloride 106
Carbon Dioxide 23
BUN 46 H
Creatinine 1.9 H
Glucose 78
Calcium 9.6
Vital Signs:
Vital Signs
Temp Pulse Resp BP Pulse Ox
97.5 F 110 14 121/76 94
01/09/25 15:13 01/09/25 15:13 01/09/25 15:13 01/09/25 15:13 01/09/25 15:13
I&O
01/08/25 01/09/25 01/10/25
06:59 06:59 06:59
Intake Total 480 / 480 580 / 580
Output Total 850 / 850 850 / 850
Balance -370 / -370 -270 / -270
Review of Systems
-
History Source: Patient
All other systems: Reviewed and negative
Physical Exam
-
General: No Apparent Distress
[2025-01-09] MEDS: FLUSH (NSS) 2 FLUSH IV (18:29)
[2025-01-10 03:12] VITALS: BP 114/80
[2025-01-10] MEDS: ZOSYN 50 IV ×2 (05:55→12:58)
[2025-01-10 06:00] VITALS: BMI 18.7
[2025-01-10 06:53] LABS: Hematocrit 40.8 % (39.0-52.0); Hemoglobin 13.6 g/dL (13.0-18.0); Mean Corp Hgb Conc. 33.3 g/dL (33.0-37.0); Mean Corpuscular Volume 101.5 fL (80.0-94.0); Nucleated Red Blood Cells % 0 % (-); Platelet Count 105 10^3/uL (130-400); Red Cell Dist. Width 17.0 % (11.5-14.5)
[2025-01-10 07:00] VITALS: BP 110/72
[2025-01-10 07:47] LABS: Blood Urea Nitrogen 41 mg/dl (9-20); Calcium 9.4 mg/dl (8.4-10.2); Carbon Dioxide 25 mmol/L (22-30); Chloride 106 mmol/L (98-107); Estimated Creatinine Clearance 29 ml/min; Glucose 100 mg/dl (70-99); Potassium 4.1 mmol/L (3.5-5.1); Sodium 138 mmol/L (135-145); eGFR 41.52
[2025-01-10] MEDS: XALATAN OPHTHALMIC SOLUTION 1 DROP BOTH EYES (08:54)
[2025-01-10] MEDS: SENOKOT 8.6 MG PO ×2 (08:54→20:28)
[2025-01-10] MEDS: FARXIGA 10 MG PO (08:54)
[2025-01-10] MEDS: TOPROL XL 25 MG PO ×2 (08:54→20:28)
[2025-01-10] MEDS: HEPARIN SC ×3 (09:45→22:38)
--- NOTE | 2025-01-10 10:28 | CM ---
Addendum entered by Haley Lund 01/10/25 15:28:
patient now stated does not have a ride to his home today ([place] [address] [place]), has a ride from a friend tomorrow - His pharmacy [facility] closed at 1pm today & closed tomorrow.
Patient states would like his prescriptions sent to [facility] on [address] , [place]. hospitalist aware - changed to preferred in [facility] - friend will take to supervisor picking crew presciptions tomorrow
Notified Rose at [facility] discharge now will be tomorrow - SOC Sunday
PLAN: Home w/[facility] & [facility] follow up tomorrow
friend will transport
Original Note:
patient seen at bedside
[facility]erral made to [facility] for resources
spoke with Rose liaision [facility] of discharge today per hospitalist - states SOC tomorrow
IMM explained & signed. In chart
patient making calls (son/friend) for transportation home - resides at [place] [address] [place]
Plan: Home w/ [facility] & [facility] follow up
making calls for transport home, CM to follow up
[2025-01-10 11:00] VITALS: BP 114/80
[2025-01-10] MEDS: FLUSH (NSS) 2 FLUSH IV (12:59)
--- NOTE | 2025-01-10 13:01 | W.DCSUMMARY ---
Addendum entered and electronically signed by Hitesh Wong DO 01/11/25 11:04:
Patient did not actually leave until 01/11/2025 due to transportation issues
Original Note:
Discharge Summary
Discharge Data
Date of Admission: 01/06/25
Date of Discharge: 01/10/25
Total time spent discharging patient (in min): 55
-
Pending Results: No
Hospital Course
Mr. Laws is a 74-year-old male with a medical history of squamous cell lung cancer (status post left upper lobectomy 2000), COPD, HFrEF, enlarged prostate, and 11-gyhq-miti current smoker who presented with shortness of breath, bilateral lower
extremity edema, and orthopnea. His symptoms had been progressing over the past few weeks prior to arrival. His primary outreach consultant and stabilizing machine operator are at [facility] although he is currently living in [place] and so presented here for
evaluation. He states he had a recent CT and PET scan showing possible recurrent lung cancer on the right side. He was started on IV diuresis and admitted for further evaluation and management.
He diuresed well with IV Lasix and was able to breathe comfortably and his orthopnea resolved. He did develop an JANE and so diuresis was held. He continues to be comfortably in his renal function has begun to improve. His home Entresto was held
and will continue to be held at discharge due to JANE and low blood pressure. He will be started on low-dose Lasix daily at discharge and will need repeat lab work in a few days to monitor his kidney function. He will need to follow-up with
cardiology for ongoing evaluation and medication adjustments as needed.
He developed acute urinary retention during his hospitalization requiring Molina catheter placement. He reports this has happened previously many years ago. His acute urinary retention may also have contributed to his worsening renal function
especially in the setting of IV diuresis. He will be discharged home with Molina catheter in place. He has been started on Flomax and will need to follow-up with urology in the outpatient setting.
He will need close follow-up with his stabilizing machine operator and oncologist in the outpatient setting for ongoing management of his chronic lung disease and possible cancer recurrence. He currently follows with doctors at [facility]. He has been
given contact information for physicians within the [facility] system if this is more convenient for him. Case management has arranged a visiting nurse service to follow-up with him after discharge.
General: No Apparent Distress, Comfortable and Conversant
HEENT: NormoCephalic, Moist mucous membranes, Atraumatic
Respiratory: Mild wheezing bilaterally, Non Labored Respirations
Cardiac: S1/S2 and Regular Rhythm; No Rub or Gallop
GI: Soft, Non Tender, Non Distended and Normal Bowel Sounds
Musculoskeletal: 1+ bilateral lower extremity edema to mid mancilla, no deformity
Skin: Warm and dry
: Molina catheter in place draining clear yellow urine
Neuro: Awake, Alert, Nonfocal/grossly intact
Psych: Calm and cooperative
Discharge Plan
-
Patient Disposition: Home with Home Care
Discharge Diagnosis/Procedures: Acute on chronic HFrEF, JANE, acute urinary retention
Blood Work: Repeat basic metabolic panel in 3 to 4 days to monitor kidney function
Activity Restrictions/Additional Instructions:
You were admitted for treatment of shortness of breath and lower extremity edema. This was likely due to an acute exacerbation of your heart failure. Your breathing significant improved after treatment with IV diuretic.
However your kidney function worsened with diuretic treatment. After holding your diuretic for 48 hours your kidney function has started to improve. You will be continued on oral diuretic (furosemide, brand-name Lasix) in order to avoid fluid
overload. Your blood pressure medication, Entresto, was held during this admission due to low blood pressure and worsening kidney function. Your Entresto will continue to be held for now. You will need repeat labs in the outpatient setting to
monitor for continued improvement in your kidney function.
You had an abnormal echocardiogram during this hospitalization which showed reduced left ventricular function with ejection fraction of 30 to 35%. Echocardiogram also showed an abnormal aortic valve which could possibly be an infection. However
you showed no clinical signs of such an infection and your blood cultures remained sterile. You will need to follow-up with cardiology to repeat an echocardiogram in the near future to further monitor this aortic valve abnormality. Your home
medication metoprolol succinate dose was increased to twice daily. When you follow-up with your outreach consultant, further the dosage adjustments may be made.
You required placement of Molina catheter during this admission due to urinary retention which may have contributed to your worsening kidney function. You will be started on a medication called Flomax and you should follow-up with a urologist for a
monitored voiding trial.
You will also need to follow-up with a stabilizing machine operator and oncologist for further evaluation and management of your lung masses which may possibly be a recurrence of your cancer.
You were treated with antibiotics for possible pneumonia during your admission. You will be given a prescription for 1 more day of oral antibiotics after discharge to complete a total 5-day course. You will be given a prescription for nicotine gum
in order to help you stop smoking.
Instructions: *PCP/Other Professional Athletes Coach Heart Failure Instructions
Referrals:
Ten Marx MD [Active, Pulmonary Medicine]
Hitesh Rowe MD [Family Provider]
Petey Chinchilla MD [Active, Urology]
Referral Note: Acute urinary retention, Molina catheter in place at discharge, started on Flomax, needs monitored voiding trial
Rosalba Medellin MD [Active, Cardiology]
Buck Gagnon MD [Active, Hematology / Oncology]
Prescriptions:
New
nicotine (polacrilex) 2 mg Gum
2 mg PO Q2HPRN PRN (Reason: nicotine cravings) Qty: 90 0RF
furosemide [Lasix] 20 mg tablet
20 mg PO DAILY Qty: 60 0RF
amoxicillin-pot clavulanate 875-125 mg tablet
1 tab PO BID 1 Days Qty: 2 0RF
tamsulosin 0.4 mg capsule
0.4 mg PO HS Qty: 30 0RF
Continued
latanoprost 0.005 % Drops
1 drp OPHTHALMIC (EYE) DAILY
albuterol sulfate 90 mcg/actuation Hfa Aerosol Inhaler
2 puff INHALATION 6XD
loratadine [Claritin] 10 mg Tablet
10 mg PO DAILY PRN (Reason: Reduction Of Transepidermal Water Loss)
Jardiance 10 mg Tablet
10 mg PO DAILY
Changed
metoprolol succinate 25 mg Tablet Extended Release 24 Hr
25 mg PO BID 60 Days Qty: 120 0RF
Held
sacubitril-valsartan [Entresto] 24-26 mg Tablet
1 tab PO BID
Hold Instructions: Holding for abnormal kidney function and borderline hypotension, follow-up with your outreach consultant about restarting this medication
Discharge Orders:
Discharge Patient (As Directed); Ordered 01/10/25
Ordered By: Hitesh Wong
Discharge Date and Time
Print Language: PASHTO
[2025-01-10] MEDS: FLUZONE HIGH-DOSE 2025-26 0.5 ML IM (14:48)
[2025-01-10 14:52] VITALS: BP 115/80
[2025-01-10] MEDS: AUGMENTIN 500 MG/125 MG 1 TABLET PO (20:28)
[2025-01-10 23:11] VITALS: BP 100/73
[2025-01-11 06:00] VITALS: BMI 18.7
[2025-01-11 06:51] LABS: Hematocrit 42.9 % (39.0-52.0); Hemoglobin 14.4 g/dL (13.0-18.0); Mean Corp Hgb Conc. 33.6 g/dL (33.0-37.0); Mean Corpuscular Volume 101.2 fL (80.0-94.0); Nucleated Red Blood Cells % 0 % (-); Platelet Count 119 10^3/uL (130-400); Red Cell Dist. Width 16.9 % (11.5-14.5)
[2025-01-11 06:54] LABS: Blood Urea Nitrogen 37 mg/dl (9-20); Calcium 9.1 mg/dl (8.4-10.2); Carbon Dioxide 24 mmol/L (22-30); Chloride 108 mmol/L (98-107); Estimated Creatinine Clearance 32 ml/min; Glucose 132 mg/dl (70-99); Potassium 4.1 mmol/L (3.5-5.1); Sodium 141 mmol/L (135-145); eGFR 48.25
[2025-01-11 07:00] VITALS: BP 113/80
[2025-01-11] MEDS: FARXIGA 10 MG PO (09:14)
[2025-01-11] MEDS: TOPROL XL 25 MG PO (09:14)
[2025-01-11] MEDS: AUGMENTIN 500 MG/125 MG 1 TABLET PO (09:14)
[2025-01-11] MEDS: SENOKOT 8.6 MG PO (09:15)
[2025-01-11] MEDS: XALATAN OPHTHALMIC SOLUTION 1 DROP BOTH EYES (09:15)
[2025-01-11] MEDS: HEPARIN 5000 UNITS SC (09:23)
[2025-01-11 10:30] VITALS: BMI 18.7
--- NOTE | 2025-01-11 10:51 | CM ---
Patient seen at bedside
patient states he has transport today-after lunch
CM informed [facility] opened until 5pm
IMM signed yesterday in chart
[facility] will admit tomorrow - spoke with Rose GARCIA
PLAN: Home with [facility]
Friend to transport home
[2025-01-11 11:35] VITALS: BP 103/77
--- NOTE | 2025-01-13 10:59 | W.HF.CON ---
Heart Failure
- LV Function
Left ventricular function study result: LV Ejection fraction </= 35%
Ejection Fraction Percentage: 30-35
- ARNI
Patient already on ARNI: No
Heart Failure ARNI Contraindication: Acute Renal Failure, Hypotension
- ACEI/ARB
Patient already on ACEI/ARB: No
Heart Failure ACEI/ARB Contraindication: Acute Renal Failure, Hypotension
- Beta Jade
Patient already on Evidence Based Beta Jade: Yes
- Mineralocorticord Receptor Antagonist
Patient already on MRA: No
Heart Failure MRA Contraindication: Acute Renal Insufficiency, Hypotension
- SGLT-2 Inhibitor
Patient already on SGLT-2 Inhibitor: Yes
- NYHA CHF Classification
NYHA CHF Classification Level: Class III - Symptoms w/ min exertion, interferes w/ nml daily activity
- ACC/AHA Stage
ACC/AHA Stage: Stage C: Symptomatic Heart Failure
== END 2025-01-11 14:33 | disposition home health service (06) | DRG 291 ==
LOC: 4 EAST ACU 02:58
PROVIDERS: Emergency Medicine; ADMITTING PHYSICIAN Hospitalist; ATTENDING PHYSICIAN Internal Medicine; CONSULT PHYSICIAN Internal Medicine Cardiovascular Disease; EMERGENCY PHYSICIAN Emergency Medicine; FAMILY PHYSICIAN Family Medicine; OTHER PHYSICIAN Internal Medicine Critical Care Medicine
PROC: 3E02340 Introduction of Influenza Vaccine into Muscle, Percutaneous Approach (ICD-10-PCS; 2025-01-10)
DX: I13.0 Hypertensive heart and chronic kidney disease with heart failure and stage 1 through stage 4 chronic kidney disease, or unspecified chronic kidney disease (principal); I50.23 Acute on chronic systolic (congestive) heart failure; J18.9 Pneumonia, unspecified organism; J44.1 Chronic obstructive pulmonary disease with (acute) exacerbation; N17.9 Acute kidney failure, unspecified; Z59.00 Homelessness unspecified; C34.12 Malignant neoplasm of upper lobe, left bronchus or lung; Z68.1 Body mass index [BMI] 19.9 or less, adult; F17.210 Nicotine dependence, cigarettes, uncomplicated; E87.5 Hyperkalemia; N40.1 Benign prostatic hyperplasia with lower urinary tract symptoms; N18.9 Chronic kidney disease, unspecified; E88.A Wasting disease (syndrome) due to underlying condition; I5A Non-ischemic myocardial injury (non-traumatic); Z71.6 Tobacco abuse counseling; Z79.899 Other long term (current) drug therapy; Z23 Encounter for immunization
CPT/HCPCS: 71046; 71250; 80048; 80053; 82962; 83880; 84443; 84484; 85025; 85027; 87040; 87070; 90662; 93005; 93306; 93970; 94640; 96374; 97162; 97166; 97530; 97535; 99285; G0008